=== PATIENT | female | born 1965 | race Caucasian/White ===

== ENCOUNTER 2021-12-08 16:06 | Inpatient (IN) ==
[2021-12-08 18:07] LABS: Basophils # (auto) 0.03 K/uL (0-0.2); Basophils % (auto) 0.1 %; Eosinophils # (auto) 0.02 K/uL (0-0.5); Eosinophils % (auto) 0.1 %; Hematocrit (blood only) 36.8 % (37-47); Hemoglobin 12.1 g/dL (12.0-16.0); Immature Granulocytes # (auto) 0.23 K/uL (0.00-0.02); Immature Granulocytes % (auto) 1.1 %; Lymphocytes # (auto) 1.45 K/uL (1.2-3.4); Lymphocytes % (auto) 6.6 %; Mean Corpuscular Hgb Conc 32.9 g/dL (32-36); Mean Corpuscular Volume 97.4 fL (80-100); Monocytes # (auto) 1.39 K/uL (0.11-0.59); Monocytes % (auto) 6.4 %; Neutrophils # (auto) 18.74 K/uL (1.4-6.5); Neutrophils % (auto) 85.7 %; Platelet Count 258 K/uL (130-400); RDW Coefficient of Variation 14.6 % (11.5-14.5); RDW Standard Deviation 51.4 fL (36.4-46.3); Red Blood Count 3.78 M/uL (4.2-5.4); White Blood Count 21.86 K/uL (4.8-10.8)
[2021-12-08 19:25] LABS: Albumin Globulin Ratio 0.9 (0.9-2); Albumin Level 3.7 gm/dl (3.4-5.0); Bilirubin,Total 0.7 mg/dl (0.2-1.0); Calcium 9.2 mg/dl (8.5-10.1); Est GFR (African American) 121.1 ml/min; Est GFR (Non-African American) 104.5 ml/min; Potassium 3.6 mmol/L (3.5-5.1); Total Protein 7.7 gm/dl (6.0-8.3)
[2021-12-08] MEDS ORDERED: SODIUM CHLORIDE 0.9% 1000ML 1,000 ML IV ONE (19:48)
[2021-12-08] MEDS ORDERED: CLINDAMYCIN 900 MG in DEXTROSE 5% 50 ML IV ONE (19:48)
--- NOTE | 2021-12-08 19:58 | Emergency Department Note ---
History of Present Illness General Chief complaint: Throat Pain Stated complaint: SWELLING IN THROAT, THROAT/JAW PAIN Time Seen by Provider: 12/08/21 19:40 Source: patient History of Present Illness Provider complaint: Neck pain Onset (ago): day(s) 3 Location: neck Pain Consistency: + constant Maximum Pain Intensity: 10 Quality: + other (Soreness) Exacerbated By: + eating Associated symptoms: + cough, + nausea/vomiting and + shortness of breath; no chest pain or no fever/chills This is a 56-year-old female who presents with neck pain for the past 3 days. She developed a sore throat about a week ago with cough and cold symptoms. She was seen here 3 days ago and had a work-up including testing for COVID, strep and a chest x-ray. She was discharged home on doxycycline. She states that when she got home she developed a significant amount of swelling to her anterior neck. She has pain to that area which she describes as soreness. It is worse when she tries to swallow. She states that she has significant difficulty drinking liquids and has thrown them up. She has some difficulty breathing as well. She denies any rash. She has had no fever, loss of taste or smell, chest pain, abdominal pain, diarrhea or urinary symptoms. She denies any recent dental work or dental pain other than the neck pain radiating into her lower jaw. Home Medications Medication Instructions Recorded Confirmed Type famotidine 40 mg tablet 40 mg PO BID 09/07/20 12/08/21 History ibuprofen 600 mg tablet 600 mg PO DIRECTED PRN 09/07/20 12/08/21 History umeclidinium 62.5 mcg-vilanterol 1 inh INHALATION DAILY PRN 09/07/20 12/08/21 History 25 mcg/actuation powdr for inhalation (Anoro Ellipta) albuterol sulfate 90 mcg/actuation 2 inh INHALATION Q6H PRN #8.5 g 12/05/21 12/08/21 Rx aerosol inhaler doxycycline hyclate 100 mg capsule 100 mg PO BID 7 Days #14 cap 12/05/21 12/08/21 Rx prednisone 20 mg tablet 60 mg PO DAILY 4 Days #12 tab 12/05/21 12/08/21 Rx acetaminophen 500 mg tablet 1,000 mg PO Q6H PRN 12/08/21 12/08/21 History (Tylenol Extra Strength) multivitamin 1 tab PO DAILY 12/08/21 12/08/21 History sulindac 150 mg tablet 150 mg PO BID 12/08/21 12/08/21 History Allergies Allergy/AdvReac Type Severity Reaction Status Date / Time Penicillins Allergy Intermediate RASH Verified 12/08/21 21:49 Past Med/Surg History Medical History Carpal tunnel syndrome bilat Chronic obstructive pulmonary disease rare res inh use DVT (deep venous thrombosis) 10 yrs ago from prolonged standing > right leg > thinners > no longer on GERD (gastroesophageal reflux disease) Hypertension pt denies > no meds Osteoarthritis Sleep apnea cpap Surgical History History of adenoidectomy History of ankle surgery left History of repair of rotator cuff left x2 History of tonsillectomy History of tooth extraction wisdom teeth Family History Mother Diabetes Social History Smoking Status: Former smoker Second Hand Exposure: No; Hx Alcohol Use: No Hx Substance Use: No Preferred Language: Nauruan Communication Ability: Effective 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 and A total of 10 systems reviewed and were otherwise negative Physical Exam Vital Signs Vital Signs - 24 hr 12/08/21 16:32 12/08/21 21:02 Temperature 36.4 C L Temperature Source Skin Pulse Rate 98 H Respiratory Rate 18 20 Respiratory Effort / Characteristics Non-Labored Grunting Labored Respiratory Depth Normal Normal Blood Pressure 148/84 H Blood Pressure [Right Arm] 119/96 Blood Pressure Mean 105 Blood Pressure Mean [Right Arm] 103 Pulse Oximetry 96 95 Oxygen Delivery Method Room Air Room Air Sepsis Recent Fever Within 48 Hours No Sepsis New/Unexplained Change in Mental Status No Sepsis Action Taken by Nursing No Action Required Constitutional: Vital signs reviewed. Eyes: Pupils are equal round reactive to light. Conjunctiva are noninjected. ENT: Pharynx is clear without erythema or exudate. Mucous membranes are dry. Neck supple without meningeal signs. Soft tissue swelling to the neck b ilaterally with mild induration. No firmness or significant swelling to the submental region or any elevation of the tongue. No usual edema or shift. No trismus or drooling. Respiratory: Clear to auscultation bilaterally. Breath sounds are equal bilaterally. No stridor or wheezing. Cardiovascular: Regular rate and rhythm. No rubs or gallops. GI: Soft, nondistended and nontender. Bowel sounds are present. Musculoskeletal: No peripheral edema. Integumentary: No cyanosis. or jaundice. Neurological: The patient is awake and alert. No focal deficits. Psychiatric: Normal affect. Not anxious appearing. Course Administered Medications Discontinued Medications Dexamethasone (Dexamethasone Sod Inj 4 Mg/Ml Vial) 10 mg IV NOW STA Stop: 12/08/21 21:28 Last Admin: 12/08/21 21:42 Dose: 10 mg Documented by: [id number] Sodium Chloride (Nss 1000ml) 1,000 mls @ 999 mls/hr IV .Q1H1M ONE Stop: 12/08/21 20:48 Last Admin: 12/08/21 20:43 Dose: 999 mls/hr Documented by: [id number] Clindamycin Phosphate 900 mg/ (Dextrose) 56 mls @ 112 mls/hr IV ONE ONE Stop: 12/08/21 20:17 Last Infusion: 12/08/21 21:52 Dose: 0 mls/hr Documented by: [id number] Admin: 12/08/21 20:48 Dose: 112 mls/hr Documented by: [id number] Ioversol (Optiray 320 100ml) 91 ml IV ONCE ONE Stop: 12/08/21 20:29 Last Admin: 12/08/21 20:31 Dose: 91 ml Documented by: [id number] Medical Decision Making Differential Diagnosis Cellulitis, abscess, retropharyngeal abscess, Jamison's angina, mononucleosis Medical Records Attestation: I reviewed the patient's medical records. I did perform a limited focused review of portions of the patient's old chart on the electronic medical record. The patient was seen 3 days ago for similar symptoms without the swelling. She had negative testing for strep and a bio fire for viral and COVID testing. Chest x-ray was unremarkable and she was sent home on doxycycline. Home Medications Current Medication List: was personally reviewed by me Laboratory Data Attestation: I reviewed the patient's lab results. Result diagrams: 12/08/21 17:35 12/08/21 17:35 Lab Results 12/08/21 12/08/21 12/08/21 Range/Units 17:35 17:35 20:17 WBC 21.86 H (4.8-10.8) K/uL RBC 3.78 L (4.2-5.4) M/uL Hgb 12.1 (12.0-16.0) g/dL Hct 36.8 L (37-47) % MCV 97.4 (80-100) fL MCH 32.0 (25-34) pg MCHC 32.9 (32-36) g/dL RDW Std Deviation 51.4 H (36.4-46.3) fL RDW Coeff of Jamison 14.6 H (11.5-14.5) % Plt Count 258 (130-400) K/uL MPV 9.0 (7.4-10.4) fL Immature Gran % (Auto) 1.1 % Neut % (Auto) 85.7 % Lymph % (Auto) 6.6 % Bibb % (Auto) 6.4 % Eos % (Auto) 0.1 % Baso % (Auto) 0.1 % Neut # (Auto) 18.74 H (1.4-6.5) K/uL Lymph # (Auto) 1.45 (1.2-3.4) K/uL Bibb # (Auto) 1.39 H (0.11-0.59) K/uL Eos # (Auto) 0.02 (0-0.5) K/uL Baso # (Auto) 0.03 (0-0.2) K/uL Immature Gran # (Auto) 0.23 H (0.00-0.02) K/uL Sodium 138 (136-145) mmol/L Potassium 3.6 (3.5-5.1) mmol/L Chloride 98 (98-107) mmol/L Carbon Dioxide 31 (21-32) mmol/L Anion Gap 9 (3-11) BUN 11 (6-23) mg/dl Creatinine 0.58 L (0.6-1.2) mg/dl Est Cr Clr Drug Dosing 144.0 ml/min Est GFR ( Amer) 121.1 ml/min Est GFR (Non-Af Amer) 104.5 ml/min BUN/Creatinine Ratio 19.0 (10-20) Glucose 129 H (70-99(Fasting)) mg/dl Calcium 9.2 (8.5-10.1) mg/dl Total Bilirubin 0.7 (0.2-1.0) mg/dl AST 28 (13-39) U/L ALT 17 (7-52) U/L Alkaline Phosphatase 78 (34-104) U/L C-Reactive Protein 28.38 H (0-0.5) mg/dl Total Protein 7.7 (6.0-8.3) gm/dl Albumin 3.7 (3.4-5.0) gm/dl Globulin 4.0 (2.5-4.0) gm/dl Albumin/Globulin Ratio 0.9 (0.9-2) Monoscreen (Negative) 12/08/21 Range/Units 20:17 WBC (4.8-10.8) K/uL RBC (4.2-5.4) M/uL Hgb (12.0-16.0) g/dL Hct (37-47) % MCV (80-100) fL MCH (25-34) pg MCHC (32-36) g/dL RDW Std Deviation (36.4-46.3) fL RDW Coeff of Jamison (11.5-14.5) % Plt Count (130-400) K/uL MPV (7.4-10.4) fL Immature Gran % (Auto) % Neut % (Auto) % Lymph % (Auto) % Bibb % (Auto) % Eos % (Auto) % Baso % (Auto) % Neut # (Auto) (1.4-6.5) K/uL Lymph # (Auto) (1.2-3.4) K/uL Bibb # (Auto) (0.11-0.59) K/uL Eos # (Auto) (0-0.5) K/uL Baso # (Auto) (0-0.2) K/uL Immature Gran # (Auto) (0.00-0.02) K/uL Sodium (136-145) mmol/L Potassium (3.5-5.1) mmol/L Chloride (98-107) mmol/L Carbon Dioxide (21-32) mmol/L Anion Gap (3-11) BUN (6-23) mg/dl Creatinine (0.6-1.2) mg/dl Est Cr Clr Drug Dosing ml/min Est GFR ( Amer) ml/min Est GFR (Non-Af Amer) ml/min BUN/Creatinine Ratio (10-20) Glucose (70-99(Fasting)) mg/dl Calcium (8.5-10.1) mg/dl Total Bilirubin (0.2-1.0) mg/dl AST (13-39) U/L ALT (7-52) U/L Alkaline Phosphatase (34-104) U/L C-Reactive Protein (0-0.5) mg/dl Total Protein (6.0-8.3) gm/dl Albumin (3.4-5.0) gm/dl Globulin (2.5-4.0) gm/dl Albumin/Globulin Ratio (0.9-2) Monoscreen Negative (Negative) Imaging Data Radiologist's Impression: Soft Tissue Neck CT 12/08/21 19:48 CT SCAN OF THE NECK WITH IV CONTRAST CLINICAL HISTORY: Neck swelling. COMPARISON STUDY: No priors. TECHNIQUE: Following the IV administration of 91 cc of Optiray 320, CT scan of the soft tissues of the neck was performed from the skull base to the upper chest. Images are reviewed in the axial, sagittal, and coronal planes. IV contrast was administered without complication. A dose lowering technique was utilized adhering to the principles of ALARA. CT DOSE: 609.23 mGy.cm FINDINGS: Pharynx: The epiglottis appears thickened and edematous. There is marked mucosal thickening and edema with mucosal hyperemia seen throughout the pharyngeal and laryngeal soft tissues. No peritonsillar abscess is identified. There is extensive infiltration seen throughout the parapharyngeal fat bilaterally, as well as infiltration of the retropharyngeal fat. Extensive infiltration is within the deep soft tissues in the anterior neck extending from the level of the hyoid to the thoracic inlet. There is a crescentic fluid collection seen anteriorly to the thyroid cartilage. This extends from the hyoid to the level of the thyroid gland on axial image #182. The collection extends approximately 4 cm in length and measures approximately 1 cm maximum thickness. There is infiltration of the subcutaneous fat within the anterior neck and the left sternoclavicular region. There is also narrowing of the laryngeal airway. The sublingual fat is normal. Lymphadenopathy: There are numerous mildly enlarged bilateral cervical chain lymph nodes which measure up to 1.6 cm in length. Thyroid: Mildly enlarged and heterogeneous. Salivary glands: The parotid glands are within normal limits. The submandibular glands appear mildly enlarged and heterogeneous with surrounding infiltration. Brain parenchyma: The visualized brain parenchyma at the skull base is normal in appearance. Vascular structures: The carotid arteries and jugular veins are patent bilaterally. Skeletal structures: Imaged portions of the calvarium at the skull base are within normal limits. The cervical spine appears intact noting multilevel spondylosis. No lytic or blastic lesion is seen. Sinuses and mastoids: The visualized paranasal sinuses are clear. The mastoid air cells are well pneumatized. Lung apices: Visualized apical lung parenchyma is clear. IMPRESSION: 1. There is a severe inflammatory process of the pharynx and larynx as above with overlying cellulitis of the anterior neck. This is centered at the level of the larynx and causes at least mild narrowing of the laryngeal airway. This is likely on an infectious basis. 2. No peritonsillar abscess is identified. 3. There is a crescentic fluid collection seen within the deep soft tissues of the anterior neck extending from the level of the hyoid to the thyroid gland. This is superficial to the thyroid cartilage and likely represents an abscess. 4. The epiglottis is markedly thickened and edematous indicating epiglottitis. 5. There is infiltration of the parapharyngeal fat and retropharyngeal fat. 6. Edema within the submandibular glands and the thyroid gland is likely reactive. 7. Numerous mildly enlarged cervical lymph nodes are likely reactive. 8. Additional findings as above. Findings were discussed with Dr. Ramos in the emergency department at the time of interpretation. ACT 112: Negative or not required by law. Electronically signed by: Migue Siddiqui M.D. 12/08/2021 8:52 PM [facility] Narrative I did evaluate the patient as noted above. The patient has been sick for about a week with sore throat and cough. She is presenting today with swelling to her neck for 3 days. IV access was established. She was started on normal saline IV. I did order 2 sets of blood cultures and treated her with clindamycin 900 mg IV. I did order and review the patient's blood work as noted in the electronic medical record. Her white count is elevated at 21,000. Hemoglobin is 12. CMP is unremarkable. After discussion with the patient, I did order a CT of the soft tissue neck. I did review the images myself as well as the radiology report as described above. She has significant findings as noted above. I did speak to the APC for Dr. Zepeda of ENT. She reviewed the case with the physician and called back to state that she wanted the patient in the ICU. She will see her in the morning. She recommended continuing the clindamycin as well as Decadron 10 mg every 6. I did reassess the patient. She is resting comfortably. She is not stridulous. She has no difficulty breathing. She is not tachypneic or hypoxemic. I did discuss case with Gustavo from the ICU team as well as Dr. Galeana of the hospitalist service. I did treat the patient with Decadron 10 mg IV. Impression & Plan Acute epiglottitis, Cellulitis of neck, Abscess of neck Discharge Plan Visit Data Chief Complaint: Throat Pain Stated Complaint: SWELLING IN THROAT, THROAT/JAW PAIN ED Provider: Jet Ramos Discharge Problem: Acute epiglottitis, Cellulitis of neck, Abscess of neck Patient Disposition: Admitted As Inpatient Forms Stand Alone Forms: My [facility] Prescriptions Prescriptions: No Action famotidine 40 mg Tablet 40 mg PO BID RF: 0 Anoro Ellipta 62.5-25 mcg/actuation Blister With Device 1 inh INHALATION DAILY PRN (Reason: Shortness Of Breath) RF: 0 ibuprofen 600 mg Tablet 600 mg PO DIRECTED PRN (Reason: Pain) RF: 0 multivitamin Tablet 1 tab PO DAILY RF: 0 sulindac 150 mg tablet 150 mg PO BID RF: 0 acetaminophen [Tylenol Extra Strength] 500 mg Tablet 1,000 mg PO Q6H PRN (Reason: Pain) RF: 0 doxycycline hyclate 100 mg capsule 100 mg PO BID 7 Days Qty: 14 RF: 0 albuterol sulfate 90 mcg/actuation HFA aerosol inhaler 2 inh inhalation Q6H PRN (Reason: shortness of breath or wheezing) Qty: 8.5 RF: 0 prednisone 20 mg tablet 60 mg PO DAILY 4 Days Qty: 12 RF: 0 Referrals Referrals: Jim Martell MD [Primary Care Provider] - Discharge Problem: Acute epiglottitis Qualifiers: Airway obstruction: without obstruction Qualified Code(s): J05.10 - Acute epiglottitis without obstruction
[2021-12-08] MEDS ORDERED: OPTIRAY 320 100ml IV ONE (20:28)
--- NOTE | 2021-12-08 20:54 | CT Scan Report ---
CT SCAN OF THE NECK WITH IV CONTRAST CLINICAL HISTORY: Neck swelling. COMPARISON STUDY: No priors. TECHNIQUE: Following the IV administration of 91 cc of Optiray 320, CT scan of the soft tissues of e neck was performed from the skull base to the upper chest. Images are reviewed in the axial, sagitt al, and coronal planes. IV contrast was administered without complication. A dose lowering techniqu e was utilized adhering to the principles of ALARA. CT DOSE: 609.23 mGy.cm FINDINGS: Pharynx: The epiglottis appears thickened and edematous. There is marked mucosal thickening and edema with mucosal hyperemia seen throughout the pharyngeal and laryngeal soft tissues. No peritonsillar a bscess is identified. There is extensive infiltration seen throughout the parapharyngeal fat bilatera lly, as well as infiltration of the retropharyngeal fat. Extensive infiltration is within the deep so ft tissues in the anterior neck extending from the level of the hyoid to the thoracic inlet. There is a crescentic fluid collection seen anteriorly to the thyroid cartilage. This extends from the hyoid to the level of the thyroid gland on axial image #182. The collection extends approximately 4 cm in l ength and measures approximately 1 cm maximum thickness. There is infiltration of the subcutaneous fa t within the anterior neck and the left sternoclavicular region. There is also narrowing of the laryn geal airway. The sublingual fat is normal. Lymphadenopathy: There are numerous mildly enlarged bilateral cervical chain lymph nodes which measur e up to 1.6 cm in length. Thyroid: Mildly enlarged and heterogeneous. Salivary glands: The parotid glands are within normal limits. The submandibular glands appear mildly enlarged and heterogeneous with surrounding infiltration. Brain parenchyma: The visualized brain parenchyma at the skull base is normal in appearance. Vascular structures: The carotid arteries and jugular veins are patent bilaterally. Skeletal structures: Imaged portions of the calvarium at the skull base are within normal limits. The cervical spine appears intact noting multilevel spondylosis. No lytic or blastic lesion is seen. Sinuses and mastoids: The visualized paranasal sinuses are clear. The mastoid air cells are well pneu matized. Lung apices: Visualized apical lung parenchyma is clear. IMPRESSION: 1. There is a severe inflammatory process of the pharynx and larynx as above with overlying celluliti s of the anterior neck. This is centered at the level of the larynx and causes at least mild narrowin g of the laryngeal airway. This is likely on an infectious basis. 2. No peritonsillar abscess is identified. 3. There is a crescentic fluid collection seen within the deep soft tissues of the anterior neck exte nding from the level of the hyoid to the thyroid gland. This is superficial to the thyroid cartilage and likely represents an abscess. 4. The epiglottis is markedly thickened and edematous indicating epiglottitis. 5. There is infiltration of the parapharyngeal fat and retropharyngeal fat. 6. Edema within the submandibular glands and the thyroid gland is likely reactive. 7. Numerous mildly enlarged cervical lymph nodes are likely reactive. 8. Additional findings as above. Findings were discussed with Dr. Ramos in the emergency department at the time of interpretation. ACT 112: Negative or not required by law. Electronically signed by: Migue Siddiqui M.D. 12/08/2021 8:52 PM
[2021-12-08] MEDS ORDERED: DEXAMETHASONE SOD INJ 4 MG/ML VIAL IV STA (21:27)
--- NOTE | 2021-12-08 22:32 | History & Physical Report ---
Date of Service December 08, 2021 Assessment & Plan (1) Sepsis: Plan: Secondary to neck space infection secondary to epiglottitis hx PE DVT status post Coumadin status post IVC filter placement COPD, clinical wheezing on exam GERD, stable on regimen learning disability as per records Steroid-induced hyperglycemia rule out DM past tobacco abuse ICU monitoring due to potential for upper airway obstruction as per ENT recommendation ER provider already in touch with Dr. Barone (ENT specialist siphon operator) who recommends antibiotic and Decadron 10 mg IV every 6 hours for now N.p.o. until patient seen by ENT in a.m. in anticipation of procedure. CS, Vancomycin and ceftriaxone as recommended antibiotics supraglottitis. Check hemoglobin A1c DVT prophylaxis per Lovenox subcu Full code Text document was generated using [employer] voice recognition software. It may contain grammatical or spelling errors. Kindly contact undersigned for clarification of any documentation item in question. History of Present Illness Chief Complaint: Worsening neck swelling Primary Care Provider: Jim Martell MD History obtained from patient and records. Medical history significant for PE DVT status post Coumadin status post IVC filter placement, COPD, GERD, learning disability as per records, past tobacco abuse. Last confinement 2015 under Orthopedics service for elective left shoulder surgery. 1 week history of fever, cough, sore throat symptoms. Poor appetite. No known recent COVID-19 contacts. Patient has not received COVID-19 vaccination. Patient seen at PCP's office. Symptoms attributed to viral infection. Outpatient COVID-19 test was negative. Patient consulted ER 3 days ago for worsening symptoms. Patient discharged on doxycycline and steroid course for possible bronchitis. Worsening symptoms and note of neck swelling " starting from the right ear and going across." Pain all over her teeth. Voice change noted. Some swallowing problems. Cough productive of clear sputum without chest pain. Patient consulted ER for worsening symptoms. IV Clindamycin and Decadron given at the ER. Medical History as above Surgical History : Ovarian cyst removal, IVC filter placement, tonsillectomy/adenoidectomy Family History : Heart disease, DM, colon cancer Personal/Social history : Past tobacco abuse, no EtOH intake, disabled Allergies Allergy/AdvReac Type Severity Reaction Status Date / Time Penicillins Allergy Intermediate RASH Verified 12/08/21 21:49 Home Medications Medication Instructions Recorded Confirmed Type famotidine 40 mg tablet 40 mg PO BID 09/07/20 12/08/21 History ibuprofen 600 mg tablet 600 mg PO DIRECTED PRN 09/07/20 12/08/21 History umeclidinium 62.5 mcg-vilanterol 1 inh INHALATION DAILY PRN 09/07/20 12/08/21 History 25 mcg/actuation powdr for inhalation (Anoro Ellipta) albuterol sulfate 90 mcg/actuation 2 inh INHALATION Q6H PRN #8.5 g 12/05/21 12/08/21 Rx aerosol inhaler doxycycline hyclate 100 mg capsule 100 mg PO BID 7 Days #14 cap 12/05/21 12/08/21 Rx prednisone 20 mg tablet 60 mg PO DAILY 4 Days #12 tab 12/05/21 12/08/21 Rx acetaminophen 500 mg tablet 1,000 mg PO Q6H PRN 12/08/21 12/08/21 History (Tylenol Extra Strength) multivitamin 1 tab PO DAILY 12/08/21 12/08/21 History sulindac 150 mg tablet 150 mg PO BID 12/08/21 12/08/21 History Past Med/Surg History Medical History Carpal tunnel syndrome bilat Chronic obstructive pulmonary disease rare res inh use DVT (deep venous thrombosis) 10 yrs ago from prolonged standing > right leg > thinners > no longer on GERD (gastroesophageal reflux disease) Hypertension pt denies > no meds Osteoarthritis Sleep apnea cpap Surgical History History of adenoidectomy History of ankle surgery left History of repair of rotator cuff left x2 History of tonsillectomy History of tooth extraction wisdom teeth Family History Mother Diabetes Social History Smoking Status: Former smoker Second Hand Exposure: No; Do You Dip or Chew Tobacco: No; Tobacco Cessation Education Requested by Patient: No Hx Alcohol Use: No Hx Substance Use: No Preferred Language: Urdu Communication Ability: Effective Communication Ability Comment: Pt states she is unable to read and unable to spell good Baggage Security Checker Required: No Beliefs That Will Affect Care: None Current Living Situation: Family Current Living Situation Comment: Home with sister, states they help each other Other Information That Helps Us Care for You: No Feels Safe at Home: Yes Safety Concerns: Feels Safe At This Time Assistive Devices: None Review of Systems Review of Systems: As per HPI, all other systems reviewed and negative Physical Exam Physical Exam: GENERAL: Comfortable, anxious, morbidly obese, dysphonic, no stridor, no respiratory distress SKIN: Normal color, warm HEENT: [place] palpebral conjunctivae, no ptosis, dry buccal mucosa, no trismus NECK : Short neck, cervical swelling and tenderness CHEST : Expiratory wheezes , no tenderness HEART : RRR, no obvious murmurs ABDOMEN: Some distention, nontender EXTREMITIES : No LE swelling/tenderness, no other conspicuous deformities noted NEUROLOGIC : Coherent, no facial asymmetry, dysphonic, no other gross focality Results & Data Results & Data ([facility]) Vital Signs (Past 12 Hours) Vital Signs Temp Pulse Resp BP BP Pulse Ox 12/08/21 21:02 20 119/96 95 12/08/21 16:32 36.4 C L 98 H 18 148/84 H 96 Laboratory Results Laboratory Results WBC 21.86 K/uL (4.8-10.8) H 12/08/21 17:35 RBC 3.78 M/uL (4.2-5.4) L 12/08/21 17:35 Hgb 12.1 g/dL (12.0-16.0) 12/08/21 17:35 Hct 36.8 % (37-47) L 12/08/21 17:35 MCV 97.4 fL (80-100) 12/08/21 17:35 MCH 32.0 pg (25-34) 12/08/21 17:35 MCHC 32.9 g/dL (32-36) 12/08/21 17:35 RDW Std Deviation 51.4 fL (36.4-46.3) H 12/08/21 17:35 RDW Coeff of [place]ison 14.6 % (11.5-14.5) H 12/08/21 17:35 Plt Count 258 K/uL (130-400) 12/08/21 17:35 MPV 9.0 fL (7.4-10.4) 12/08/21 17:35 Immature Gran % (Auto) 1.1 % 12/08/21 17:35 Neut % (Auto) 85.7 % 12/08/21 17:35 Lymph % (Auto) 6.6 % 12/08/21 17:35 Henry % (Auto) 6.4 % 12/08/21 17:35 Eos % (Auto) 0.1 % 12/08/21 17:35 Baso % (Auto) 0.1 % 12/08/21 17:35 Neut # (Auto) 18.74 K/uL (1.4-6.5) H 12/08/21 17:35 Lymph # (Auto) 1.45 K/uL (1.2-3.4) 12/08/21 17:35 Henry # (Auto) 1.39 K/uL (0.11-0.59) H 12/08/21 17:35 Eos # (Auto) 0.02 K/uL (0-0.5) 12/08/21 17:35 Baso # (Auto) 0.03 K/uL (0-0.2) 12/08/21 17:35 Immature Gran # (Auto) 0.23 K/uL (0.00-0.02) H 12/08/21 17:35 Sodium 138 mmol/L (136-145) 12/08/21 17:35 Potassium 3.6 mmol/L (3.5-5.1) 12/08/21 17:35 Chloride 98 mmol/L (98-107) 12/08/21 17:35 Carbon Dioxide 31 mmol/L (21-32) 12/08/21 17:35 Anion Gap 9 (3-11) 12/08/21 17:35 BUN 11 mg/dl (6-23) 12/08/21 17:35 Creatinine 0.58 mg/dl (0.6-1.2) L 12/08/21 17:35 Est Cr Clr Drug Dosing 144.0 ml/min 12/08/21 17:35 Est GFR ( Amer) 121.1 ml/min 12/08/21 17:35 Est GFR (Non-Af Amer) 104.5 ml/min 12/08/21 17:35 BUN/Creatinine Ratio 19.0 (10-20) 12/08/21 17:35 Glucose 129 mg/dl (70-99(Fasting)) H 12/08/21 17:35 Lactate 0.7 mmol/L (0.4-2.0) 12/08/21 22:00 Calcium 9.2 mg/dl (8.5-10.1) 12/08/21 17:35 Magnesium 1.8 mg/dl (1.7-2.4) 12/08/21 17:35 Total Bilirubin 0.7 mg/dl (0.2-1.0) 12/08/21 17:35 AST 28 U/L (13-39) 12/08/21 17:35 ALT 17 U/L (7-52) 12/08/21 17:35 Alkaline Phosphatase 78 U/L (34-104) 12/08/21 17:35 C-Reactive Protein 28.38 mg/dl (0-0.5) H 12/08/21 20:17 Total Protein 7.7 gm/dl (6.0-8.3) 12/08/21 17:35 Albumin 3.7 gm/dl (3.4-5.0) 12/08/21 17:35 Globulin 4.0 gm/dl (2.5-4.0) 12/08/21 17:35 Albumin/Globulin Ratio 0.9 (0.9-2) 12/08/21 17:35 Monoscreen Negative (Negative) 12/08/21 20:17 Impressions Soft Tissue Neck CT 12/08/21 19:48 CT SCAN OF THE NECK WITH IV CONTRAST CLINICAL HISTORY: Neck swelling. COMPARISON STUDY: No priors. TECHNIQUE: Following the IV administration of 91 cc of Optiray 320, CT scan of the soft tissues of the neck was performed from the skull base to the upper chest. Images are reviewed in the axial, sagittal, and coronal planes. IV contrast was administered without complication. A dose lowering technique was utilized adhering to the principles of ALARA. CT DOSE: 609.23 mGy.cm FINDINGS: Pharynx: The epiglottis appears thickened and edematous. There is marked mucosal thickening and edema with mucosal hyperemia seen throughout the pharyngeal and laryngeal soft tissues. No peritonsillar abscess is identified. There is extensive infiltration seen throughout the parapharyngeal fat bilaterally, as well as infiltration of the retropharyngeal fat. Extensive infiltration is within the deep soft tissues in the anterior neck extending from the level of the hyoid to the thoracic inlet. There is a crescentic fluid collection seen anteriorly to the thyroid cartilage. This extends from the hyoid to the level of the thyroid gland on axial image #182. The collection extends approximately 4 cm in length and measures approximately 1 cm maximum thickness. There is infiltration of the subcutaneous fat within the anterior neck and the left sternoclavicular region. There is also narrowing of the laryngeal airway. The sublingual fat is normal. Lymphadenopathy: There are numerous mildly enlarged bilateral cervical chain lymph nodes which measure up to 1.6 cm in length. Thyroid: Mildly enlarged and heterogeneous. Salivary glands: The parotid glands are within normal limits. The submandibular glands appear mildly enlarged and heterogeneous with surrounding infiltration. Brain parenchyma: The visualized brain parenchyma at the skull base is normal in appearance. Vascular structures: The carotid arteries and jugular veins are patent bilaterally. Skeletal structures: Imaged portions of the calvarium at the skull base are within normal limits. The cervical spine appears intact noting multilevel spondylosis. No lytic or blastic lesion is seen. Sinuses and mastoids: The visualized paranasal sinuses are clear. The mastoid air cells are well pneumatized. Lung apices: Visualized apical lung parenchyma is clear. IMPRESSION: 1. There is a severe inflammatory process of the pharynx and larynx as above with overlying cellulitis of the anterior neck. This is centered at the level of the larynx and causes at least mild narrowing of the laryngeal airway. This is likely on an infectious basis. 2. No peritonsillar abscess is identified. 3. There is a crescentic fluid collection seen within the deep soft tissues of the anterior neck extending from the level of the hyoid to the thyroid gland. This is superficial to the thyroid cartilage and likely represents an abscess. 4. The epiglottis is markedly thickened and edematous indicating epiglottitis. 5. There is infiltration of the parapharyngeal fat and retropharyngeal fat. 6. Edema within the submandibular glands and the thyroid gland is likely reactive. 7. Numerous mildly enlarged cervical lymph nodes are likely reactive. 8. Additional findings as above. Findings were discussed with Dr. Ramos in the emergency department at the time of interpretation. ACT 112: Negative or not required by law. Electronically signed by: Migue Siddiqui M.D. 12/08/2021 8:52 PM Diagnostic Findings Chest x-ray as per my interpretation no congestion
[2021-12-08 22:41] LABS: Adenovirus PCR Not Detected (NotDetected); Bordetella parapertussis PCR Not Detected (NotDetected); Bordetella pertussis PCR Not Detected (NotDetected); Chlamydia pneumoniae PCR Not Detected (NotDetected); Coronavirus 229E PCR Not Detected (NotDetected); Coronavirus CoV-2 (COVID19)PCR Not Detected (NotDetected); Coronavirus HKU1 PCR Not Detected (NotDetected); Coronavirus NL63 PCR Not Detected (NotDetected); Coronavirus OC43PCR Not Detected (NotDetected); Human Metapneumovirus PCR Not Detected (NotDetected); Influenza A PCR Not Detected (NotDetected); Influenza B PCR Not Detected (NotDetected); Mycoplasma pneumoniae PCR Not Detected (NotDetected); Parainfluenza Virus 1 PCR Not Detected (NotDetected); Parainfluenza Virus 2 PCR Not Detected (NotDetected); Parainfluenza Virus 3 PCR Not Detected (NotDetected); Parainfluenza Virus 4 PCR Not Detected (NotDetected); Respiratory Syncytial VirusPCR Not Detected (NotDetected); Rhinovirus/Enterovirus PCR Not Detected (NotDetected)
[2021-12-08] MEDS ORDERED: LEVALBUTEROL 1.25MG/0.5ML NEB INH STA (22:41)
[2021-12-08] MEDS ORDERED: IPRATROPIUM BROMIDE NEB SOLN 0.02% 2.5 ML VIAL INH STA (22:41)
[2021-12-08] MEDS ORDERED: XOPENEX/ATROVENT 1.25mg/0.5MG NEB COMBO NEB STA (22:41)
[2021-12-08] MEDS ORDERED: LACTATED RINGER'S 1,000 ML IV ONE (23:37)
[2021-12-09] MEDS ORDERED: IBUPROFEN 600 MG TAB PO PRN (00:46)
[2021-12-09] MEDS ORDERED: KETOROLAC TROMETHAMINE 15 MG/ML VIAL IV PRN (00:46)
[2021-12-09] MEDS ORDERED: ICU PROTOCOL FOR HYPERGLYCEMIA PRN (00:46)
[2021-12-09] MEDS ORDERED: PROMETHAZINE HCL 12.5 MG in SODIUM CHLORIDE 0.9% 50 ML IV PRN (00:46)
[2021-12-09] MEDS ORDERED: LORazepam 2 MG/1 ML VIAL IV PRN (00:46)
--- NOTE | 2021-12-09 01:29 | Critical Care Consultation ---
Date of Consultation December 09, 2021 Assessment & Plan (1) Admitted to intensive care unit: Reason Critically Ill: 56-year-old female presenting with cellulitis of the anterior neck with concerns for epiglottitis on CT as well. Continue to monitor in the ICU in the event of emergent airway necessary. NEURO - * CAM ICU: NEGATIVE CARDIAC/VASCULAR - * Hypertension: * Continue home medications as tolerated. * Monitor on telemetry. RESPIRATORY - * Difficult airway: * Secondary to cellulitis of the anterior neck and concerns for epiglottitis. * Difficult airway tools at bedside. * ENT to evaluated in the AM. GI/NUTRITION - * NPO after midnight. RENAL/LYTES - * No significant electrolyte derangements. - * No concerns at this time. ENDO - * No h/o DM or thyroid dz * BSGs per unit protocol. ISS --> gtt per unit policy. HEME - * Leukocytosis: * In the setting of cellulitis. ID - * Cellulitis of the Neck/Epiglottitis: * Continue w/ Clindamycin, Decadron, Toradol * ENT Eval for ?? surgical intervention. LINES/IV ACCESS - * PIVs x2 DVT PROPHYLAXIS - * Lovenox * SCDs I have personally spent 35 minutes of critical care time in the direct management of this patient. This is a life/limb threatening event. This includes time spent evaluating patient, direct bedside care, chart review, placing orders, interpretation of diagnostic studies, discussion with consultants, patient, and family members, as well as other required patient management activities. This time is exclusive of all separately billable procedures, and teaching time and separate from and in addition to any other critical care service time. Thank you for allowing us to participate in the care of this patient. Please refer to my attending physician's documentation for any further recommendations. (2) Cellulitis of neck: (3) Difficult airway: History of Present Illness Attending Physician: Elicia Miranda, History of Present Illness Patient is a 56-year-old female with a significant past medical history of COPD who had presented to the emergency department on 12/05 with a 3-day complaint of cough, congestion, sore throat. She was diagnosed with bronchitis and placed on doxycycline. Unfortunately, despite antibiotic management, the patient developed increasing pain and swelling to the anterior aspect of the neck as well as associated difficulty swallowing. This prompted return visit to the emergency department. On evaluation, the patient was noted to have a moderate leukocytosis and CT demonstrated cellulitis of the anterior neck with areas of abscess as well as concerning findings for epiglottitis. She received IV clindamycin and Decadron. ENT was consulted by phone and recommended the patient be admitted to the ICU for airway management in the event of patient declined. Upon evaluation in the emergency department, the patient is awake, alert, and oriented. She reports that she does feel better than when she had presented. She is laying flat on her back and not struggling to breathe. She complains of some ongoing cough, but otherwise reports improvement with swallowing and breathing. Allergies Allergy/AdvReac Type Severity Reaction Status Date / Time Penicillins Allergy Intermediate RASH Verified 12/08/21 21:49 Home Medications Medication Instructions Recorded Confirmed Type famotidine 40 mg tablet 40 mg PO BID 09/07/20 12/08/21 History ibuprofen 600 mg tablet 600 mg PO DIRECTED PRN 09/07/20 12/08/21 History umeclidinium 62.5 mcg-vilanterol 1 inh INHALATION DAILY PRN 09/07/20 12/08/21 History 25 mcg/actuation powdr for inhalation (Anoro Ellipta) albuterol sulfate 90 mcg/actuation 2 inh INHALATION Q6H PRN #8.5 g 12/05/21 12/08/21 Rx aerosol inhaler doxycycline hyclate 100 mg capsule 100 mg PO BID 7 Days #14 cap 12/05/21 12/08/21 Rx prednisone 20 mg tablet 60 mg PO DAILY 4 Days #12 tab 12/05/21 12/08/21 Rx acetaminophen 500 mg tablet 1,000 mg PO Q6H PRN 12/08/21 12/08/21 History (Tylenol Extra Strength) multivitamin 1 tab PO DAILY 12/08/21 12/08/21 History sulindac 150 mg tablet 150 mg PO BID 12/08/21 12/08/21 History Patient History Medical History Carpal tunnel syndrome bilat Chronic obstructive pulmonary disease rare res inh use DVT (deep venous thrombosis) 10 yrs ago from prolonged standing > right leg > thinners > no longer on GERD (gastroesophageal reflux disease) Hypertension pt denies > no meds Osteoarthritis Sleep apnea cpap Surgical History History of adenoidectomy History of ankle surgery left History of repair of rotator cuff left x2 History of tonsillectomy History of tooth extraction wisdom teeth Family History Mother Diabetes Social History Smoking Status: Former smoker Second Hand Exposure: No; Hx Alcohol Use: No Hx Substance Use: No Preferred Language: French Communication Ability: Effective Outside Sales Inspector Required: No Beliefs That Will Affect Care: None Current Living Situation: Significant Other Feels Safe at Home: Yes Assistive Devices: Glasses Review of Systems Review of Systems: All systems reviewed & are unremarkable except as noted in HPI & below Physical Exam Physical Exam: VITAL SIGNS - Vital signs and nursing notes were reviewed. GENERAL - Well nourished, well developed 56-year-old female in no acute distress. Pt communicates well with provider and answers questions appropriately. SKIN - Without rash. HEAD - NC/AT with no obvious deformities. EYES - PERRL with EOMI bilaterally. Sclera without injection. Palpebral conjunctiva pink and moist. EARS - No deformities of external structures noted on gross examination bilaterally. No pain elicited with palpation of the tragus bilaterally. NOSE - Midline and without cyanosis. No purulent drainage noted. Nasal mucosa without mucus discharge. MOUTH/OROPHARYNX - Without perioral cyanosis. Buccal mucosa pink and moist and without leukoplakia. Tongue midline with equal elevation of palate bilaterally. No tonsillar hypertrophy, erythema, or exudates noted. Good dentition noted. No trismus. No stridor or wheezing. NECK - Moderate edema and subglottic TTP on exam. Neck with FROM. Supple to palpation. No nuchal rigidity. LUNGS - Chest wall symmetric without accessory muscle use, intercostals retractions, or central cyanosis. Normal vesicular breath sounds CTA B/L. No wheezes, rales, or rhonchi appreciated. CARDIAC - RRR with S1/S2. No murmur, rubs, or gallops appreciated. ABDOMEN - Abdominal contour obese without pulsations or visible masses. BS normoactive all four quadrants. No tenderness, palpable masses, hepatosplenomegaly, or ascites noted. Results & Data Results & Data ([facility]) Vital Signs (Past 12 Hours) Vital Signs Temp Pulse Pulse Resp BP BP Pulse Ox 12/09/21 00:45 21 95 12/08/21 22:58 75 18 96 12/08/21 22:52 22 94 12/08/21 21:02 20 119/96 95 12/08/21 16:32 36.4 C L 98 H 18 148/84 H 96 Coding Level of Care Code Critical Care 1st 30-74 mins Diagnoses Admitted to intensive care unit Z78.9 Cellulitis of neck L03.221 Difficult airway T88.4XXA Time Spent (min) 35
[2021-12-09] MEDS ORDERED: CLINDAMYCIN 900 MG in DEXTROSE 5% 50 ML IV SCH (04:00)
[2021-12-09] MEDS ORDERED: VANCOMYCIN CONSULT ACTIVE PRN (04:33)
[2021-12-09] MEDS ORDERED: VANCOMYCIN HCL 1,000 MG in SODIUM CHLORIDE 0.9% 250 ML IV STA (04:33)
[2021-12-09] MEDS: cefTRIAXone SODIUM 2,000 MG in DEXTROSE 5% 50 ML IV SCH (05:04)
[2021-12-09 05:22] LABS: Basophils # (auto) 0.01 K/uL (0-0.2); Basophils % (auto) 0.1 %; Hematocrit (blood only) 35.3 % (37-47); Hemoglobin 11.7 g/dL (12.0-16.0); Immature Granulocytes # (auto) 0.22 K/uL (0.00-0.02); Immature Granulocytes % (auto) 1.3 %; Lymphocytes # (auto) 1.43 K/uL (1.2-3.4); Lymphocytes % (auto) 8.4 %; Mean Corpuscular Hemoglobin 32.4 pg (25-34); Mean Corpuscular Hgb Conc 33.1 g/dL (32-36); Mean Corpuscular Volume 97.8 fL (80-100); Mean Platelet Volume 8.9 fL (7.4-10.4); Monocytes # (auto) 0.63 K/uL (0.11-0.59); Monocytes % (auto) 3.7 %; Neutrophils # (auto) 14.73 K/uL (1.4-6.5); Neutrophils % (auto) 86.5 %; Platelet Count 257 K/uL (130-400); RDW Coefficient of Variation 14.7 % (11.5-14.5); RDW Standard Deviation 52.4 fL (36.4-46.3); Red Blood Count 3.61 M/uL (4.2-5.4); White Blood Count 17.02 K/uL (4.8-10.8)
[2021-12-09] MEDS: dexAMETHasone 10 MG in SYRINGE 0 ML IV SCH ×4 (05:22→23:58)
[2021-12-09] MEDS ORDERED: VANCOMYCIN HCL 2,500 MG in SODIUM CHLORIDE 0.9% 500 ML IV ONE (05:30)
[2021-12-09 05:47] LABS: BUN Creatinine Ratio 19.1 (10-20); Calcium 8.9 mg/dl (8.5-10.1); Creatinine Clr Calc Pharmacy 177.4 ml/min; Est GFR (African American) 129.8 ml/min; Potassium 3.6 mmol/L (3.5-5.1)
[2021-12-09] MEDS ORDERED: dexAMETHasone 6 MG in SYRINGE 0 ML IV SCH (06:00)
[2021-12-09] MEDS ORDERED: DEXAMETHASONE SOD INJ 4 MG/ML VIAL IV SCH (06:00)
--- NOTE | 2021-12-09 07:22 | XRay Report ---
XR chest 1V portable HISTORY: 56 years-old Female wheeze acute shortness of breath with wheezing COMPARISON: Chest radiographs 12/05/2021 TECHNIQUE: Portable AP view of the chest FINDINGS: The cardiac silhouette is upper limits of normal in size. There is no pneumothorax, pleural effusion, airspace consolidation or overt pulmonary edema. Degenerative changes of the shoulders and spine. IMPRESSION: No acute process. ACT 112: Negative or not required by law. The above report was generated using voice recognition software. It may contain grammatical, syntax o r spelling errors. Electronically signed by: Mahesh Stone M.D. 12/09/2021 7:21 AM
[2021-12-09 07:42] LABS: Estimated Average Glucose 114 mg/dl; Hemoglobin A1C 5.6 % (4.5-5.6)
[2021-12-09] MEDS ORDERED: CONSULT PHARMACY PRN (09:00)
--- NOTE | 2021-12-09 09:44 | Critical Care Progress Note ---
Date of Service December 09, 2021 Assessment & Plan (1) Admitted to intensive care unit: Plan: Reason Critically Ill: 56-year-old female presenting with cellulitis of the anterior neck with concerns for epiglottitis on CT as well. Continue to monitor in the ICU in the event of emergent airway necessary. NEURO - * CAM ICU: NEGATIVE CARDIAC/VASCULAR - * Hypertension: * Continue home medications as tolerated. * Monitor on telemetry. RESPIRATORY - * Difficult airway: * Secondary to cellulitis of the anterior neck and concerns for epiglottitis. * Difficult airway tools at bedside. * ENT to evaluated in the AM. GI/NUTRITION - * NPO after midnight. RENAL/LYTES - * No significant electrolyte derangements. - * No concerns at this time. ENDO - * No h/o DM or thyroid dz * BSGs per unit protocol. ISS --> gtt per unit policy. HEME - * Leukocytosis: * In the setting of cellulitis. ID - * Cellulitis of the Neck/Epiglottitis: * Continue w/ Clindamycin, Decadron, Toradol * ENT Eval for ?? surgical intervention. LINES/IV ACCESS - * PIVs x2 DVT PROPHYLAXIS - * Lovenox * SCDs I have personally spent 35 minutes of critical care time in the direct management of this patient. This is a life/limb threatening event. This includes time spent evaluating patient, direct bedside care, chart review, placing orders, interpretation of diagnostic studies, discussion with consultants, patient, and family members, as well as other required patient management activities. This time is exclusive of all separately billable procedures, and teaching time and separate from and in addition to any other critical care service time. Thank you for allowing us to participate in the care of this patient. Please refer to my attending physician's documentation for any further recommendations. (2) Cellulitis of neck: (3) Difficult airway: Admission and Anticipated Discharge Date Admission Date: December 08, 2021 Subjective Feels improved, now has voice back, still difficulty swallowing Results & Data Results & Data ([facility]) Vital Signs (Past 12 Hours) Vital Signs Temp Pulse Pulse Pulse Resp BP Pulse Ox 12/09/21 09:00 65 15 92 12/09/21 08:41 69 22 92 12/09/21 08:00 70 62 14 136/93 97 12/09/21 07:00 36.8 C 64 18 139/87 94 12/09/21 06:00 73 22 139/87 96 12/09/21 05:00 37.2 C 73 21 139/68 98 12/09/21 04:00 36.9 C 65 22 139/69 95 12/09/21 03:00 74 20 143/87 H 97 12/09/21 02:00 71 22 150/76 H 94 12/09/21 01:22 79 12/09/21 01:00 76 24 148/97 H 95 12/09/21 00:45 21 95 12/09/21 00:30 37.7 C H 99 H 21 142/66 H 93 12/09/21 00:10 37.7 C H 99 H 22 142/66 H 93 12/08/21 22:58 75 18 96 12/08/21 22:52 22 94 Coding Level of Care Code 31750 Subs Hosp Care Lvl 3 Diagnoses Admitted to intensive care unit Z78.9 Cellulitis of neck L03.221 Difficult airway T88.4XXA
[2021-12-09] MEDS: ENOXAPARIN INJ 40 MG/0.4 ML SYR SQ SCH (09:59)
[2021-12-09] MEDS: UMECLIDINIUM/VILANTEROL 62.5/25MCG 7 PUFFS/INHALER INH SCH (10:01)
[2021-12-09] MEDS: MULTIVITAMIN TAB PO SCH (10:04)
[2021-12-09] MEDS: FAMOTIDINE 40 MG TABLET PO SCH ×2 (10:04→20:55)
--- NOTE | 2021-12-09 10:07 | Hospitalist Progress Note ---
Date of Service December 09, 2021 Assessment & Plan (1) Acute epiglottitis: (2) Cellulitis of neck: (3) Abscess of neck: Plan: Concerns overnight for developing sepsis 2/2 cellulitis of the neck with presence of abscess as well as narrowing airway from swelling as a result of acute epiglottitis. Pt was recently on a short course of oral prednisone and abx as above with no improvement. After starting on IV abx and decadron she is now doing very well today. ENT planned to evaluate later this afternoon. Appreciate recs. (4) Leukocytosis: Plan: 2/2 infection vs steroid use recently. Clinically improved on current therapy. Cont to monitor. (5) Chronic obstructive pulmonary disease: Plan: chronic, not in exacerbation. (6) Admitted to intensive care unit: (7) DVT prophylaxis: Plan: Lovenox Full Code Dispo-cont ICU Elicia Miranda DO [facility] Hospitalist Admission and Anticipated Discharge Date Admission Date: December 08, 2021 Subjective The patient is a 56-year-old female who presented with cough congestion and a tight throat on 12/05 for 2 days. COVID and flu test were negative. She was afebrile, tachycardic up to 108 bpm and normotensive oxygenating 91% on room air with no retractions or accessory muscle use with breathing. A bio fire panel detected no viral etiology she was given Decadron, doxycycline and DuoNeb in the ER and was sent home with doxycycline and a steroid taper.. She returned on 12/08 reporting swelling in her throat with throat and jaw pain. She had persistent cough and now shortness of breath. She has a dyne aphasia and dysphagia with vomiting. She denies any recent dental work. She was given Decadron 10 mg IV and started on clindamycin. White blood cell count was 21, monoscreen was negative. A CT scan of the neck with contrast revealed a deep space neck infection with anterior cellulitis and narrowing of the laryngeal airway. She was comfortable and not stridorous with no difficulty breathing. She was not hypoxic. She was placed in the ICU and continued on Decadron 10 mg IV every 6 hours. She is alert, speaking without issue She is having now breathing issues and is now able to swallow water and pills without a problem. Review of Systems Review of Systems: All systems were reviewed and negative except as indicated above. Physical Exam Physical Exam: CONSTITUTIONAL: obese, vitals as above, generally well- appearing, NAD EYES: normal conjunctivae, no scleral icterus, ENT: external ear and nose normal, oropharynx clear, no TTP of facial sinuses. NECK: trachea midline, TTP in anterior region, no LAD in cervical/submandibular area. RESPIRATORY: clear to auscultation bilaterally, no crackles, rales or wheezes, normal respiratory effort CARDIOVASCULAR: regular rate and rhythm, S1 and 2 heard without murmurs, gallops or rubs, no JVD, no peripheral edema CHEST: inspection of chest was normal GASTROINTESTINAL: soft, nontender, no hepatomegaly, no guarding MUSCULOSKELETAL: strength 5/5 throughout, head is normocephalic and atraumatic SKIN: warm and dry, NEUROLOGIC: CN 2-12 grossly intact, no sensory deficit, normal cognition, normal speech, no tremor PSYCHIATRIC: alert cooperative and oriented to person, place and time. Results & Data Results & Data ([facility]) Vital Signs (Past 12 Hours) Vital Signs Temp Pulse Pulse Pulse Resp BP Pulse Ox 12/09/21 09:00 65 15 92 12/09/21 08:41 69 22 92 12/09/21 08:00 70 62 14 136/93 97 12/09/21 07:00 36.8 C 64 18 139/87 94 12/09/21 06:00 73 22 139/87 96 12/09/21 05:00 37.2 C 73 21 139/68 98 12/09/21 04:00 36.9 C 65 22 139/69 95 12/09/21 03:00 74 20 143/87 H 97 12/09/21 02:00 71 22 150/76 H 94 12/09/21 01:22 79 12/09/21 01:00 76 24 148/97 H 95 12/09/21 00:45 21 95 12/09/21 00:30 37.7 C H 99 H 21 142/66 H 93 12/09/21 00:10 37.7 C H 99 H 22 142/66 H 93 12/08/21 22:58 75 18 96 12/08/21 22:52 22 94 Laboratory Results Short CBC 12/08/21 12/09/21 Range/Units 17:35 04:57 WBC 21.86 H 17.02 H (4.8-10.8) K/uL Hgb 12.1 11.7 L (12.0-16.0) g/dL Hct 36.8 L 35.3 L (37-47) % Plt Count 258 257 (130-400) K/uL BMP 12/08/21 12/09/21 17:35 04:57 Sodium 138 139 Potassium 3.6 3.6 Chloride 98 101 Carbon Dioxide 31 32 BUN 11 9 Creatinine 0.58 L 0.47 L Glucose 129 H 138 H Calcium 9.2 8.9 Liver Function 12/08/21 Range/Units 17:35 Total Bilirubin 0.7 (0.2-1.0) mg/dl AST 28 (13-39) U/L ALT 17 (7-52) U/L Alkaline Phosphatase 78 (34-104) U/L Albumin 3.7 (3.4-5.0) gm/dl Diagnostic Findings Chest X-Ray 12/08/21 22:37 XR chest 1V portable HISTORY: 56 years-old Female wheeze acute shortness of breath with wheezing COMPARISON: Chest radiographs 12/05/2021 TECHNIQUE: Portable AP view of the chest FINDINGS: The cardiac silhouette is upper limits of normal in size. There is no pneumothorax, pleural effusion, airspace consolidation or overt pulmonary edema. Degenerative changes of the shoulders and spine. IMPRESSION: No acute process. ACT 112: Negative or not required by law. The above report was generated using voice recognition software. It may contain grammatical, syntax or spelling errors. Electronically signed by: Mahesh Stone M.D. 12/09/2021 7:21 AM Medications Administered Current Inpatient Medications Acetaminophen (Acetaminophen 325 Mg Tab) 650 mg PO Q6H PRN PRN Reason: Fever/pain Stop: 01/08/22 00:45 Enoxaparin Sodium (Enoxaparin Inj 40 Mg/0.4 Ml Syr) 40 mg SQ QAM [facility] Stop: 01/08/22 08:59 Last Admin: 12/09/21 09:59 Dose: Not Given Documented by: Famotidine (Famotidine 40 Mg Tablet) 40 mg PO BID [facility] Stop: 01/08/22 08:59 Lactated Ringer's (Lr) 1,000 mls @ 80 mls/hr IV .[id number] ONE Stop: 12/09/21 12:06 Last Admin: 12/09/21 00:55 Dose: 80 mls/hr Documented by: Dexamethasone 10 mg/ Syringe 2.5 mls @ 1 mls/min IV Q6H [facility] Stop: 01/08/22 05:59 Last Admin: 12/09/21 05:22 Dose: 1 mls/min Documented by: Promethazine HCl 12.5 mg/ (Sodium Chloride) 50.5 mls @ 202 mls/hr IV Q6H PRN PRN Reason: Nausea And Vomiting Stop: 01/08/22 00:45 Lactated Ringer's (Lr) 1,000 mls @ 80 mls/hr IV .[id number] [facility] Stop: 01/08/22 11:59 Ceftriaxone Sodium 2,000 mg/ (Dextrose) 70 mls @ 140 mls/hr IV Q24H [facility]; Protocol Stop: 12/19/21 04:59 Last Infusion: 12/09/21 05:32 Dose: Infused Documented by: Ibuprofen (Ibuprofen 600 Mg Tab) 600 mg PO Q6H PRN PRN Reason: Pain Stop: 01/08/22 00:45 Ketorolac Tromethamine (Ketorolac Tromethamine 15 Mg/Ml Vial) 15 mg IV Q6H PRN PRN Reason: Pain Stop: 12/14/21 00:45 Lorazepam (Lorazepam 2 Mg/1 Ml Vial) 0.25 mg IV Q4H PRN PRN Reason: Anxiety Stop: 01/08/22 00:45 Miscellaneous (Icu Protocol For Hyperglycemia) 1 ea N/A PRN PRN; Protocol PRN Reason: Hyperglycemia Protocol Stop: 12/11/21 00:45 Miscellaneous Information (Vancomycin Consult Active) 1 ea N/A UD PRN PRN Reason: Consult Stop: 01/08/22 04:32 Multivitamins (Multivitamin Tab) 1 tab PO DAILY [facility] Stop: 01/08/22 08:59 Umeclidinium/Vilanterol (Umeclidinium/Vilanterol 62.5/25mcg 7 Puffs/Inhaler) 1 puffs INH DAILY [facility] Stop: 01/08/22 08:59 Last Admin: 12/09/21 10:01 Dose: 1 puffs Documented by: (1) Acute epiglottitis Airway obstruction: without obstruction Qualified Code(s): J05.10 - Acute epiglottitis without obstruction
[2021-12-09] MEDS ORDERED: ACETAMINOPHEN 1,000 MG/100 ML VIAL IV PRN (10:30)
--- NOTE | 2021-12-09 11:54 | Pharmacy Report ---
Pharmacy Vanc AUC Short Note - Date of Service December 09, 2021 - Assessment & Plan Assessment * 56 year old F receiving ceftriaxone and vancomycin for treatment of deep space neck infection / epiglottitis, currently being monitored in ICU for potential airway compromise. * SCr stable and at/near baseline Vancomycin * AUC/JO is the preferred PK/PD target for vancomycin * AUC guided dosing is effective and associated with decreased risk of nephrotoxicity compared to traditional trough targets * Regimen selected via AUC * Anticipated steady-state trough level of 14.2 mcg/mL is predicted to achieve target AUC/JO of 400-600 mg/L.hr and may be associated with a 9 % risk of nephrotoxicity * Trough levels are not required with AUC dosing therefore ordered a *random* level with AM labs on 12/11. This level may be slightly higher than the true trough level. Plan * Vancomycin 1500 mg IV q12h * Random level with 12/11 AM labs Pharmacy will continue to follow and will adjust dose/frequency as necessary. Thank you.
[2021-12-09] MEDS ORDERED: OXYMETAZOLINE 0.05% 30 ML BTL STA (14:05)
--- NOTE | 2021-12-09 15:51 | ENT Consultation ---
Date of Consultation December 09, 2021 Assessment & Plan (1) Acute epiglottitis: Scope exam airway is patent but still has thickening of epiglottis. Would recommend continued ICU care for another 24 hours or so. Would continue IV antibiotics as well as dexamethasone q6. Can transition to 10 dex q 8 after 24 hours. Should go home on po clindamycin and I will see her in the office in 4 weeks. As for the possible abscess seen on CT, no obvious PE findings, and appears that IV antibiotics are working and no surgical intervention required. If patient decompensates would recommend intubation and possible transfer to tertiary care center. Dr. Goldsmith will be taking over ENT call starting tomorrow so please contact him with any other questions or concerns. History of Present Illness Reason for Consultation: epiglottitis and possible neck mass Attending Physician: Elicia Miranda, History of Present Illness Please see ER note for details. Patient clinically is improved tolerating liquids. Allergies Allergy/AdvReac Type Severity Reaction Status Date / Time Penicillins Allergy Intermediate RASH Verified 12/08/21 21:49 Home Medications Medication Instructions Recorded Confirmed Type famotidine 40 mg tablet 40 mg PO BID 09/07/20 12/08/21 History ibuprofen 600 mg tablet 600 mg PO DIRECTED PRN 09/07/20 12/08/21 History umeclidinium 62.5 mcg-vilanterol 1 inh INHALATION DAILY PRN 09/07/20 12/08/21 History 25 mcg/actuation powdr for inhalation (Anoro Ellipta) albuterol sulfate 90 mcg/actuation 2 inh INHALATION Q6H PRN #8.5 g 12/05/21 12/08/21 Rx aerosol inhaler doxycycline hyclate 100 mg capsule 100 mg PO BID 7 Days #14 cap 12/05/21 12/08/21 Rx prednisone 20 mg tablet 60 mg PO DAILY 4 Days #12 tab 12/05/21 12/08/21 Rx acetaminophen 500 mg tablet 1,000 mg PO Q6H PRN 12/08/21 12/08/21 History (Tylenol Extra Strength) multivitamin 1 tab PO DAILY 12/08/21 12/08/21 History sulindac 150 mg tablet 150 mg PO BID 12/08/21 12/08/21 History Patient History Medical History Carpal tunnel syndrome bilat Chronic obstructive pulmonary disease rare res inh use DVT (deep venous thrombosis) 10 yrs ago from prolonged standing > right leg > thinners > no longer on GERD (gastroesophageal reflux disease) Hypertension pt denies > no meds Osteoarthritis Sleep apnea cpap Surgical History History of adenoidectomy History of ankle surgery left History of repair of rotator cuff left x2 History of tonsillectomy History of tooth extraction wisdom teeth Family History Mother Diabetes Social History Smoking Status: Former smoker Second Hand Exposure: No; Do You Dip or Chew Tobacco: No; Tobacco Cessation Education Requested by Patient: No Hx Alcohol Use: No Hx Substance Use: No Preferred Language: [place] Citizen Communication Ability: Effective Communication Ability Comment: Pt states she is unable to read and unable to spell good Collections Professional Required: No Beliefs That Will Affect Care: None Current Living Situation: Family Current Living Situation Comment: Home with sister, states they help each other Other Information That Helps Us Care for You: No Feels Safe at Home: Yes Safety Concerns: Feels Safe At This Time Assistive Devices: None Review of Systems Review of Systems: negative except per HPI Physical Exam Physical Exam: aao x3 NAD ENMT: Scope exam showed thickening of epiglottis with patent airway. Non purulent drainage present Neck: soft. trachea midline. no fluctuance or erythema Results & Data ([facility]) Vital Signs (Past 12 Hours) Vital Signs Temp Pulse Pulse Pulse Resp BP BP 12/09/21 11:30 63 14 12/09/21 11:00 37 C 66 17 129/67 12/09/21 10:30 74 17 12/09/21 10:06 80 17 162/72 H 12/09/21 10:00 68 17 12/09/21 09:30 68 18 12/09/21 09:00 65 15 12/09/21 08:41 69 22 12/09/21 08:00 70 62 14 136/93 12/09/21 07:00 36.8 C 64 18 139/87 12/09/21 06:00 73 22 139/87 12/09/21 05:00 37.2 C 73 21 139/68 12/09/21 04:00 36.9 C 65 22 139/69 Pulse Ox 12/09/21 11:30 95 12/09/21 11:00 92 12/09/21 10:30 91 12/09/21 10:06 95 12/09/21 10:00 94 12/09/21 09:30 90 12/09/21 09:00 92 12/09/21 08:41 92 12/09/21 08:00 97 12/09/21 07:00 94 12/09/21 06:00 96 12/09/21 05:00 98 12/09/21 04:00 95 (1) Acute epiglottitis Airway obstruction: without obstruction Qualified Code(s): J05.10 - Acute epiglottitis without obstruction
[2021-12-09] MEDS: LACTATED RINGER'S 1,000 ML IV SCH ×2 (17:12→23:59)
[2021-12-09] MEDS: VANCOMYCIN HCL 1,500 MG in SODIUM CHLORIDE 0.9% 500 ML IV SCH (17:15)
[2021-12-10] MEDS: cefTRIAXone SODIUM 2,000 MG in DEXTROSE 5% 50 ML IV SCH (04:56)
[2021-12-10] MEDS: dexAMETHasone 10 MG in SYRINGE 0 ML IV SCH ×3 (04:56→21:51)
[2021-12-10] MEDS: VANCOMYCIN HCL 1,500 MG in SODIUM CHLORIDE 0.9% 500 ML IV SCH ×2 (04:56→18:47)
[2021-12-10 05:30] LABS: Basophils # (auto) 0.01 K/uL (0-0.2); Basophils % (auto) 0.1 %; Hematocrit (blood only) 33.9 % (37-47); Hemoglobin 11.3 g/dL (12.0-16.0); Immature Granulocytes # (auto) 0.21 K/uL (0.00-0.02); Immature Granulocytes % (auto) 1.3 %; Lymphocytes # (auto) 1.91 K/uL (1.2-3.4); Lymphocytes % (auto) 11.7 %; Mean Corpuscular Hemoglobin 32.4 pg (25-34); Mean Corpuscular Hgb Conc 33.3 g/dL (32-36); Mean Corpuscular Volume 97.1 fL (80-100); Mean Platelet Volume 9.1 fL (7.4-10.4); Monocytes # (auto) 0.74 K/uL (0.11-0.59); Monocytes % (auto) 4.5 %; Neutrophils % (auto) 82.4 %; Platelet Count 276 K/uL (130-400); RDW Coefficient of Variation 14.8 % (11.5-14.5); RDW Standard Deviation 52.6 fL (36.4-46.3); Red Blood Count 3.49 M/uL (4.2-5.4); White Blood Count 16.27 K/uL (4.8-10.8)
[2021-12-10 05:41] LABS: BUN Creatinine Ratio 27.3 (10-20); Creatinine Clr Calc Pharmacy 152.5 ml/min; Est GFR (African American) 123.2 ml/min; Est GFR (Non-African American) 106.3 ml/min; Magnesium 2.2 mg/dl (1.7-2.4); Phosphorus 4.4 mg/dl (2.5-4.9); Potassium 3.7 mmol/L (3.5-5.1)
[2021-12-10] MEDS ORDERED: POTASSIUM CHLORIDE CRTAB 20 MEQ TABCR PO STA (06:38)
[2021-12-10] MEDS: ENOXAPARIN INJ 40 MG/0.4 ML SYR SQ SCH (08:43)
[2021-12-10] MEDS: FAMOTIDINE 40 MG TABLET PO SCH ×2 (08:44→21:34)
[2021-12-10] MEDS: MULTIVITAMIN TAB PO SCH (08:44)
[2021-12-10] MEDS: UMECLIDINIUM/VILANTEROL 62.5/25MCG 7 PUFFS/INHALER INH SCH (08:44)
--- NOTE | 2021-12-10 08:51 | Hospitalist Progress Note ---
Date of Service December 10, 2021 Assessment & Plan (1) Acute epiglottitis: (2) Cellulitis of neck: (3) Abscess of neck: Plan: Cellulitis of the neck with presence of abscess as well as narrowing airway from swelling as a result of acute epiglottitis. Pt was recently on a short course of oral prednisone and abx as above with no improvement. After starting on IV abx and decadron she is now doing very well today. De-escalate decadron per ENT instruction. Cont IV abx for now and convert to PO clinda at discharge. (4) Leukocytosis: Plan: 2/2 infection vs steroid use recently. Clinically improved on current therapy. Cont to monitor. (5) Chronic obstructive pulmonary disease: Plan: chronic, not in exacerbation. (6) Admitted to intensive care unit: (7) DVT prophylaxis: Plan: Lovenox Full Code Dispo-transfer to floor DO Deysi Arevalo Hospitalist Admission and Anticipated Discharge Date Admission Date: December 08, 2021 Subjective The patient is a 56-year-old female who presented with epiglottitis She is alert, speaking without issue She is tolerating food Decadron has been decreased per ENT instruction and she remains on IV abx Downgraded to med tele Reports some persistent pain in anterior throat area, but otherwise she is feeling well and in good spirits. Review of Systems Review of Systems: All systems were reviewed and negative except as indicated above. Physical Exam Physical Exam: CONSTITUTIONAL: obese, vitals as above, generally well- appearing, NAD EYES: normal conjunctivae, no scleral icterus, ENT: external ear and nose normal, oropharynx clear, no TTP of facial sinuses. NECK: trachea midline, TTP in anterior region, no LAD in cervical/submandibular area. RESPIRATORY: clear to auscultation bilaterally, no crackles, rales or wheezes, normal respiratory effort CARDIOVASCULAR: regular rate and rhythm, S1 and 2 heard without murmurs, gallops or rubs, no JVD, no peripheral edema CHEST: inspection of chest was normal GASTROINTESTINAL: soft, nontender, no hepatomegaly, no guarding MUSCULOSKELETAL: strength 5/5 throughout, head is normocephalic and atraumatic SKIN: warm and dry, NEUROLOGIC: CN 2-12 grossly intact, no sensory deficit, normal cognition, normal speech, no tremor PSYCHIATRIC: alert cooperative and oriented to person, place and time. Results & Data Results & Data ([facility]) Vital Signs (Past 12 Hours) Vital Signs Temp Pulse Pulse Resp BP BP Pulse Ox 12/10/21 06:00 36.7 C 56 L 23 155/82 H 96 12/10/21 05:30 72 31 H 95 12/10/21 05:00 36.7 C 72 23 152/75 H 97 12/10/21 04:30 61 8 L 89 L 12/10/21 04:01 51 L 18 136/66 95 12/10/21 04:00 52 L 18 96 12/10/21 03:30 51 L 17 96 12/10/21 03:01 53 L 23 130/69 94 12/10/21 03:00 56 L 25 H 94 12/10/21 02:30 57 L 24 96 12/10/21 02:01 56 L 24 150/61 H 96 12/10/21 02:00 54 L 23 97 12/10/21 01:30 63 26 H 97 12/10/21 01:01 62 27 H 155/62 H 96 12/10/21 01:00 60 25 H 97 12/10/21 00:30 73 29 H 97 12/10/21 00:15 36.5 C 12/10/21 00:00 71 36 H 134/100 96 12/09/21 23:30 55 L 17 98 12/09/21 23:00 66 25 H 154/76 H 97 12/09/21 22:30 57 L 24 96 12/09/21 22:00 56 L 23 149/77 H 97 12/09/21 21:30 79 79 0 L 145/82 H 97 12/09/21 21:01 67 22 145/82 H 97 12/09/21 21:00 80 23 77 L Laboratory Results Short CBC 12/10/21 Range/Units 05:03 WBC 16.27 H (4.8-10.8) K/uL Hgb 11.3 L (12.0-16.0) g/dL Hct 33.9 L (37-47) % Plt Count 276 (130-400) K/uL BMP 12/10/21 05:03 Sodium 140 Potassium 3.7 Chloride 101 Carbon Dioxide 32 BUN 15 Creatinine 0.55 L Glucose 152 H Calcium 9.0 Medications Administered Current Inpatient Medications Acetaminophen (Acetaminophen 325 Mg Tab) 650 mg PO Q6H PRN PRN Reason: Fever/pain Stop: 01/08/22 00:45 Enoxaparin Sodium (Enoxaparin Inj 40 Mg/0.4 Ml Syr) 40 mg SQ QAM [facility] Stop: 01/08/22 08:59 Last Admin: 12/10/21 08:43 Dose: 40 mg Documented by: Famotidine (Famotidine 40 Mg Tablet) 40 mg PO BID [facility] Stop: 01/08/22 08:59 Last Admin: 12/10/21 08:44 Dose: 40 mg Documented by: Dexamethasone 10 mg/ Syringe 2.5 mls @ 1 mls/min IV Q6H [facility] Stop: 01/08/22 05:59 Last Admin: 12/10/21 04:56 Dose: 1 mls/min Documented by: Promethazine HCl 12.5 mg/ (Sodium Chloride) 50.5 mls @ 202 mls/hr IV Q6H PRN PRN Reason: Nausea And Vomiting Stop: 01/08/22 00:45 Lactated Ringer's (Lr) 1,000 mls @ 80 mls/hr IV .[id number] [facility] Stop: 01/08/22 11:59 Last Admin: 12/09/21 23:59 Dose: 80 mls/hr Documented by: Ceftriaxone Sodium 2,000 mg/ (Dextrose) 70 mls @ 140 mls/hr IV Q24H [facility]; Protocol Stop: 12/19/21 04:59 Last Infusion: 12/10/21 06:00 Dose: Infused Documented by: Acetaminophen (Ofirmev) 1,000 mg in 100 mls @ 400 mls/hr IV Q8H PRN; Protocol PRN Reason: Fever/pain Stop: 12/12/21 10:29 Vancomycin HCl 1,500 mg/ (Sodium Chloride) 530 mls @ 200 mls/hr IV Q12H [facility]; Protocol Stop: 12/19/21 17:59 Last Infusion: 12/10/21 08:47 Dose: Infused Documented by: Ketorolac Tromethamine (Ketorolac Tromethamine 15 Mg/Ml Vial) 15 mg IV Q6H PRN PRN Reason: Pain Stop: 12/14/21 00:45 Lorazepam (Lorazepam 2 Mg/1 Ml Vial) 0.25 mg IV Q4H PRN PRN Reason: Anxiety Stop: 01/08/22 00:45 Miscellaneous (Icu Protocol For Hyperglycemia) 1 ea N/A PRN PRN; Protocol PRN Reason: Hyperglycemia Protocol Stop: 12/11/21 00:45 Miscellaneous Information (Vancomycin Consult Active) 1 ea N/A UD PRN PRN Reason: Consult Stop: 01/08/22 04:32 Multivitamins (Multivitamin Tab) 1 tab PO DAILY [facility] Stop: 01/08/22 08:59 Last Admin: 12/10/21 08:44 Dose: 1 tab Documented by: Umeclidinium/Vilanterol (Umeclidinium/Vilanterol 62.5/25mcg 7 Puffs/Inhaler) 1 puffs INH DAILY [facility] Stop: 01/08/22 08:59 Last Admin: 12/10/21 08:44 Dose: 1 puffs Documented by: (1) Acute epiglottitis Airway obstruction: without obstruction Qualified Code(s): J05.10 - Acute epiglottitis without obstruction
--- NOTE | 2021-12-10 09:22 | Critical Care Progress Note ---
Date of Service December 10, 2021 Assessment & Plan (1) Epiglottitis: Plan: Continue current IV antibiotics until patient able to swallow and then transition to clindamycin -Transitioned from Decadron every 6 to Decadron every 8 for 24 hours then DC Patient request to try diet, advance diet as tolerated Stable for downgrade out of ICU. Admission and Anticipated Discharge Date Admission Date: December 08, 2021 Subjective Feels improved compared to yesterday, swallowing little bit easier would like to try a minced and moist diet Physical Exam Physical Exam: General: Alert. nontoxic. Skin: Warm, dry, Head: Atraumatic Ears, nose, mouth and throat: airway patent, normal voice, no cellulitis or streaking lymphangitis Cardiovascular: Normal peripheral perfusion Respiratory: no respiratory distress Gastrointestinal: Non distended Musculoskeletal: No deformity Results & Data Results & Data ([facility]) Vital Signs (Past 12 Hours) Vital Signs Temp Pulse Pulse Resp BP BP Pulse Ox 12/10/21 06:00 36.7 C 56 L 23 155/82 H 96 12/10/21 05:30 72 31 H 95 12/10/21 05:00 36.7 C 72 23 152/75 H 97 12/10/21 04:30 61 8 L 89 L 12/10/21 04:01 51 L 18 136/66 95 12/10/21 04:00 52 L 18 96 12/10/21 03:30 51 L 17 96 12/10/21 03:01 53 L 23 130/69 94 12/10/21 03:00 56 L 25 H 94 12/10/21 02:30 57 L 24 96 12/10/21 02:01 56 L 24 150/61 H 96 12/10/21 02:00 54 L 23 97 12/10/21 01:30 63 26 H 97 12/10/21 01:01 62 27 H 155/62 H 96 12/10/21 01:00 60 25 H 97 12/10/21 00:30 73 29 H 97 12/10/21 00:15 36.5 C 12/10/21 00:00 71 36 H 134/100 96 12/09/21 23:30 55 L 17 98 12/09/21 23:00 66 25 H 154/76 H 97 12/09/21 22:30 57 L 24 96 12/09/21 22:00 56 L 23 149/77 H 97 12/09/21 21:30 79 79 0 L 145/82 H 97 12/09/21 21:01 67 22 145/82 H 97 12/09/21 21:00 80 23 77 L Critical Care Results & Data Vital Signs (Past 12 Hours) Vital Signs Temp Pulse Pulse Resp BP BP Pulse Ox 12/10/21 06:00 36.7 C 56 L 23 155/82 H 96 12/10/21 05:30 72 31 H 95 12/10/21 05:00 36.7 C 72 23 152/75 H 97 12/10/21 04:30 61 8 L 89 L 12/10/21 04:01 51 L 18 136/66 95 12/10/21 04:00 52 L 18 96 12/10/21 03:30 51 L 17 96 12/10/21 03:01 53 L 23 130/69 94 12/10/21 03:00 56 L 25 H 94 12/10/21 02:30 57 L 24 96 12/10/21 02:01 56 L 24 150/61 H 96 12/10/21 02:00 54 L 23 97 12/10/21 01:30 63 26 H 97 12/10/21 01:01 62 27 H 155/62 H 96 12/10/21 01:00 60 25 H 97 12/10/21 00:30 73 29 H 97 12/10/21 00:15 36.5 C 12/10/21 00:00 71 36 H 134/100 96 12/09/21 23:30 55 L 17 98 12/09/21 23:00 66 25 H 154/76 H 97 12/09/21 22:30 57 L 24 96 12/09/21 22:00 56 L 23 149/77 H 97 12/09/21 21:30 79 79 0 L 145/82 H 97 Lab & Micro Results (Past 24 Hours) RBC 3.49 M/uL (4.2-5.4) L 12/10/21 WBC 16.27 K/uL (4.8-10.8) H 12/10/21 Hgb 11.3 g/dL (12.0-16.0) L 12/10/21 Hct 33.9 % (37-47) L 12/10/21 MCV 97.1 fL (80-100) 12/10/21 MCH 32.4 pg (25-34) 12/10/21 MCHC 33.3 g/dL (32-36) 12/10/21 RDW Standard Deviation 52.6 fL (36.4-46.3) H 12/10/21 RDW Coefficient of Variation 14.8 % (11.5-14.5) H 12/10/21 Plt Count 276 K/uL (130-400) 12/10/21 MPV 9.1 fL (7.4-10.4) 12/10/21 Neutrophils (%) (Auto) 82.4 % 12/10/21 Lymphocytes (%) (Auto) 11.7 % 12/10/21 Monocytes # (Auto) 0.74 K/uL (0.11-0.59) H 12/10/21 Eosinophils # (Auto) 0.00 K/uL (0-0.5) 12/10/21 Immature Granulocyte % (Auto) 1.3 % 12/10/21 Neutrophils # (Auto) 13.40 K/uL (1.4-6.5) H 12/10/21 Lymphocytes # (Auto) 1.91 K/uL (1.2-3.4) 12/10/21 Monocytes # (Auto) 0.74 K/uL (0.11-0.59) H 12/10/21 Eosinophils # (Auto) 0.00 K/uL (0-0.5) 12/10/21 Basophils # (Auto) 0.01 K/uL (0-0.2) 12/10/21 Immature Granulocyte # (Auto) 0.21 K/uL (0.00-0.02) H 12/10/21 Na 140 mmol/L (136-145) 12/10/21 K 3.7 mmol/L (3.5-5.1) 12/10/21 Cl 101 mmol/L (98-107) 12/10/21 CO2 32 mmol/L (21-32) 12/10/21 Anion Gap 7 (3-11) 12/10/21 BUN 15 mg/dl (6-23) 12/10/21 Creatinine 0.55 mg/dl (0.6-1.2) L 12/10/21 Estimated GFR ( Amer) 123.2 ml/min 12/10/21 Estimated GFR (Non-Af Amer) 106.3 ml/min 12/10/21 BUN/Creatinine Ratio 27.3 (10-20) H 12/10/21 Glu 152 mg/dl (70-99(Fasting)) H 12/10/21 Ca 9.0 mg/dl (8.5-10.1) 12/10/21 Phosphorus Level 4.4 mg/dl (2.5-4.9) 12/10/21 Mg 2.2 mg/dl (1.7-2.4) 12/10/21 05:03 12/10/21 Calcium Level 9.0 mg/dl (8.5-10.1) 12/10/21 05:03 12/10/21 Microbiology 12/08/21 20:17 Aerobic Blood Culture - Preliminary Blood No growth in Aerobic bottle after 24 hours. Anaerobic Blood Culture - Preliminary No growth in Anaerobic bottle after 24 hours. 12/08/21 20:15 Aerobic Blood Culture - Preliminary Blood No growth in Aerobic bottle after 24 hours. Anaerobic Blood Culture - Preliminary No growth in Anaerobic bottle after 24 hours. I & O Totals 24 Hours 12/09/21 12/10/21 12/11/21 06:59 06:59 06:59 Intake Total 1182 / 1182 3392.667 / 3392.667 530 / 530 Output Total 725 / 725 Balance 1182 / 1182 2667.667 / 2667.667 530 / 530 Cumulative 12/08/21 16:06 thru 12/10/21 08:47 Intake Total 5104.667 Output Total 725 Balance 4379.667 RT Ventilator Mngmt (Last Documented) Ventilator Ordered Settings Respiratory Rate 23 12/10/21 06:00 Ventilator - PT Measurements Respiratory Rate 23 End-Tidal CO2 35 Coding Level of Care Code 29978 Subseq Hosp Care Lvl 3 Diagnoses Epiglottitis J05.10
[2021-12-10] MEDS: ACETAMINOPHEN 325 MG TAB PO PRN (10:10)
[2021-12-11] MEDS ORDERED: VANCOMYCIN TROUGH ONE (05:30)
[2021-12-11 05:52] LABS: Basophils # (auto) 0.01 K/uL (0-0.2); Basophils % (auto) 0.1 %; Eosinophils # (auto) 0.01 K/uL (0-0.5); Eosinophils % (auto) 0.1 %; Hematocrit (blood only) 34.8 % (37-47); Hemoglobin 11.3 g/dL (12.0-16.0); Immature Granulocytes # (auto) 0.32 K/uL (0.00-0.02); Immature Granulocytes % (auto) 2.3 %; Lymphocytes # (auto) 1.88 K/uL (1.2-3.4); Lymphocytes % (auto) 13.7 %; Mean Corpuscular Hemoglobin 31.7 pg (25-34); Mean Corpuscular Hgb Conc 32.5 g/dL (32-36); Mean Corpuscular Volume 97.8 fL (80-100); Mean Platelet Volume 8.8 fL (7.4-10.4); Monocytes # (auto) 1.01 K/uL (0.11-0.59); Monocytes % (auto) 7.4 %; Neutrophils # (auto) 10.47 K/uL (1.4-6.5); Neutrophils % (auto) 76.4 %; Platelet Count 315 K/uL (130-400); RDW Coefficient of Variation 14.9 % (11.5-14.5); Red Blood Count 3.56 M/uL (4.2-5.4)
[2021-12-11] MEDS: cefTRIAXone SODIUM 2,000 MG in DEXTROSE 5% 50 ML IV SCH (06:05)
[2021-12-11 06:15] LABS: BUN Creatinine Ratio 35.1 (10-20); Calcium 8.9 mg/dl (8.5-10.1); Creatinine Clr Calc Pharmacy 147.6 ml/min; Est GFR (African American) 121.8 ml/min; Est GFR (Non-African American) 105.1 ml/min; Magnesium 2.3 mg/dl (1.7-2.4); Phosphorus 4.2 mg/dl (2.5-4.9)
[2021-12-11] MEDS: dexAMETHasone 10 MG in SYRINGE 0 ML IV SCH (06:36)
[2021-12-11] MEDS: VANCOMYCIN HCL 1,500 MG in SODIUM CHLORIDE 0.9% 500 ML IV SCH ×2 (08:28→17:28)
[2021-12-11] MEDS: ENOXAPARIN INJ 40 MG/0.4 ML SYR SQ SCH (08:28)
[2021-12-11] MEDS: MULTIVITAMIN TAB PO SCH (08:29)
[2021-12-11] MEDS: FAMOTIDINE 40 MG TABLET PO SCH ×2 (08:29→22:25)
[2021-12-11] MEDS: UMECLIDINIUM/VILANTEROL 62.5/25MCG 7 PUFFS/INHALER INH SCH (08:29)
--- NOTE | 2021-12-11 08:47 | Hospitalist Progress Note ---
Date of Service December 11, 2021 Assessment & Plan (1) Acute epiglottitis: (2) Cellulitis of neck: (3) Abscess of neck: Plan: Cellulitis of the neck with presence of abscess as well as narrowing airway from swelling as a result of acute epiglottitis. Pt was recently on a short course of oral prednisone and abx as above with no improvement. After starting on IV abx and decadron, she improved and continues to do well - IV decadron course completed per ENT/Pulm - Will continue IV ABx for 24 more hours. Likely will change to po tomorrow and at discharge (4) Leukocytosis: Plan: Improving, 2/2 infection vs steroid use recently. Clinically improved on current therapy. Cont to monitor. (5) Chronic obstructive pulmonary disease: Plan: chronic, not in exacerbation. (6) DVT prophylaxis: Plan: Lovenox Full Code Admission and Anticipated Discharge Date Admission Date: December 08, 2021 Subjective No new issues. She is feeling better. Denies any dysphagia, dyspnea, drooling. Tolerating po without issues. States multiple loose stools and asking if that is from ABx. Physical Exam Physical Exam: General: Lying comfortably in bed, not in distress, on NC HEENT: EOMI, PARTHA, MMM Chest: Clear breath sounds bilaterally, no wheezes or crackles CVS: Regular rate and rhythm, normal heart sounds, no murmur Abdomen: Soft, non tender, not distended, normal bowel sounds Neuro: Awake, alert, oriented, conversing well, non focal Extremities: No cyanosis, clubbing or edema Results & Data Results & Data ([facility]) Vital Signs (Past 12 Hours) Vital Signs Temp Pulse Resp BP Pulse Ox 12/11/21 06:01 56 L 24 150/70 H 95 12/11/21 06:00 52 L 23 91 12/11/21 05:43 76 27 H 94 12/11/21 05:01 54 L 22 137/74 96 12/11/21 05:00 53 L 25 H 93 12/11/21 04:30 66 26 H 95 12/11/21 04:07 36.9 C 12/11/21 04:00 56 L 23 94 12/11/21 03:30 59 L 24 94 12/11/21 03:00 59 L 25 H 91 12/11/21 02:30 98 H 23 97 12/11/21 02:00 51 L 18 121/61 93 12/11/21 01:30 51 L 17 99 12/11/21 01:00 48 L 19 124/67 100 12/11/21 00:30 55 L 19 98 12/11/21 00:00 52 L 21 98 12/10/21 23:30 56 L 18 98 12/10/21 23:00 55 L 20 94 12/10/21 22:30 74 27 H 98 12/10/21 22:01 77 16 122/60 12/10/21 22:00 82 21 12/10/21 21:34 85 26 H 153/71 H 12/10/21 21:30 78 27 H 12/10/21 21:00 63 19 Laboratory Results Short CBC 12/11/21 Range/Units 05:13 WBC 13.70 H (4.8-10.8) K/uL Hgb 11.3 L (12.0-16.0) g/dL Hct 34.8 L (37-47) % Plt Count 315 (130-400) K/uL [facility] 12/11/21 05:13 Sodium 139 Potassium 4.0 Chloride 102 Carbon Dioxide 31 BUN 20 Creatinine 0.57 L Glucose 136 H Calcium 8.9 Medications Administered Current Inpatient Medications Acetaminophen (Acetaminophen 325 Mg Tab) 650 mg PO Q6H PRN PRN Reason: Fever/pain Stop: 01/08/22 00:45 Last Admin: 12/10/21 10:10 Dose: 650 mg Documented by: Enoxaparin Sodium (Enoxaparin Inj 40 Mg/0.4 Ml Syr) 40 mg SQ QAM [facility] Stop: 01/08/22 08:59 Last Admin: 12/11/21 08:28 Dose: 40 mg Documented by: Famotidine (Famotidine 40 Mg Tablet) 40 mg PO BID [facility] Stop: 01/08/22 08:59 Last Admin: 12/11/21 08:29 Dose: 40 mg Documented by: Promethazine HCl 12.5 mg/ (Sodium Chloride) 50.5 mls @ 202 mls/hr IV Q6H PRN PRN Reason: Nausea And Vomiting Stop: 01/08/22 00:45 Ceftriaxone Sodium 2,000 mg/ (Dextrose) 70 mls @ 140 mls/hr IV Q24H [facility]; Protocol Stop: 12/19/21 04:59 Last Infusion: 12/11/21 07:18 Dose: Infused Documented by: Acetaminophen (Ofirmev) 1,000 mg in 100 mls @ 400 mls/hr IV Q8H PRN; Protocol PRN Reason: Fever/pain Stop: 12/12/21 10:29 Vancomycin HCl 1,500 mg/ (Sodium Chloride) 530 mls @ 200 mls/hr IV Q12H [facility]; Protocol Stop: 12/19/21 17:59 Last Infusion: 12/11/21 11:44 Dose: Infused Documented by: Miscellaneous Information (Vancomycin Consult Active) 1 ea N/A UD PRN PRN Reason: Consult Stop: 01/08/22 04:32 Multivitamins (Multivitamin Tab) 1 tab PO DAILY [facility] Stop: 01/08/22 08:59 Last Admin: 12/11/21 08:29 Dose: 1 tab Documented by: Umeclidinium/Vilanterol (Umeclidinium/Vilanterol 62.5/25mcg 7 Puffs/Inhaler) 1 puffs INH DAILY [facility] Stop: 01/08/22 08:59 Last Admin: 12/11/21 08:29 Dose: 1 puffs Documented by: (1) Acute epiglottitis Airway obstruction: without obstruction Qualified Code(s): J05.10 - Acute epiglottitis without obstruction
--- NOTE | 2021-12-11 14:20 | Pharmacy Report ---
Pharmacy Vanc AUC Short Note - Date of Service December 11, 2021 - Assessment & Plan Assessment * 56 year old F receiving ceftriaxone and vancomycin for treatment of deep space neck infection / epiglottitis. Plan to transition to clindamycin po at some point, but not yet today per Dr. De Leon * SCr stable and at/near baseline Vancomycin * AUC/JO is the preferred PK/PD target for vancomycin * AUC guided dosing is effective and associated with decreased risk of nephrotoxicity compared to traditional trough targets * Regimen selected via AUC * Random level of 10.4 mcg/mL is associated with an AUC/JO of 444 mg/L*hr which is in the therapeutic range of 400-600 mg/L*hr * No further levels ordered for now as anticipate a change to po, possibly as early as tomorrow per Dr. De Leon Plan * Continue vancomycin 1500 mg IV q12h * May consider rechecking level in 48-72 hours or if renal function changes Pharmacy will continue to follow and will adjust dose/frequency as necessary. Thank you.
[2021-12-12 05:13] LABS: Hematocrit (blood only) 33.3 % (37-47); Hemoglobin 10.5 g/dL (12.0-16.0); Mean Corpuscular Hemoglobin 30.7 pg (25-34); Mean Corpuscular Hgb Conc 31.5 g/dL (32-36); Mean Corpuscular Volume 97.4 fL (80-100); Mean Platelet Volume 8.8 fL (7.4-10.4); Platelet Count 289 K/uL (130-400); Red Blood Count 3.42 M/uL (4.2-5.4); White Blood Count 12.53 K/uL (4.8-10.8)
[2021-12-12 05:27] LABS: BUN Creatinine Ratio 22.7 (10-20); Calcium 8.6 mg/dl (8.5-10.1); Creatinine Clr Calc Pharmacy 127.4 ml/min; Est GFR (African American) 116.1 ml/min; Est GFR (Non-African American) 100.1 ml/min; Magnesium 2.3 mg/dl (1.7-2.4); Phosphorus 3.4 mg/dl (2.5-4.9); Potassium 3.7 mmol/L (3.5-5.1)
[2021-12-12 05:33] LABS: ALC (manual) 2.64 K/uL (1.2-3.4); ANC (manual) 8.78 K/uL (1.4-6.5); Hypochromasia Present; Lymphocytes # (manual) 2.64 K/uL (1.2-3.4); Lymphocytes % (manual) 21.1 %; Monocytes # (manual) 0.66 K/uL (0.11-0.59); Monocytes % (manual) 5.3 %; Myelocytes # (manual) 0.44 K/uL (0-0); Myelocytes % (manual) 3.5 %; Neutrophils # (manual) 8.78 K/uL (1.4-6.5); Neutrophils % (manual) 70.1 %
[2021-12-12] MEDS: cefTRIAXone SODIUM 2,000 MG in DEXTROSE 5% 50 ML IV SCH (05:46)
[2021-12-12] MEDS: VANCOMYCIN HCL 1,500 MG in SODIUM CHLORIDE 0.9% 500 ML IV SCH (06:09)
[2021-12-12] MEDS: ENOXAPARIN INJ 40 MG/0.4 ML SYR SQ SCH (07:52)
[2021-12-12] MEDS: FAMOTIDINE 40 MG TABLET PO SCH ×2 (07:52→19:52)
[2021-12-12] MEDS: MULTIVITAMIN TAB PO SCH (07:52)
[2021-12-12] MEDS: UMECLIDINIUM/VILANTEROL 62.5/25MCG 7 PUFFS/INHALER INH SCH (07:53)
[2021-12-12] MEDS ORDERED: LIDOCAINE 2% JELLY 5 ML TUBE ONE (13:54)
[2021-12-12] MEDS ORDERED: CLINDAMYCIN HCL 150 MG CAP PO SCH ×2 (14:00)
--- NOTE | 2021-12-12 14:23 | Ears,Nose,Throat Progress Note ---
Date of Service December 12, 2021 Assessment & Plan (1) Acute epiglottitis: Plan: FiberOptic/Flexible LARYNGOSCOPY exam airway completed at bedside. Glottic Airway is patent - vocal cords are CLEAR. NO airway compromise - but still has thickening of epiglottis - mostly on the Lingual Surface. Arytenoids are within normal size and NOT compromising the airway. Aryepiglottic Folds are THIN and SMOOTH. MUCOSA is PINK - NOT Erythematous. RESOLVING past exudates. Would recommend continued ICU care for another 24 hours. Would continue antibiotics - perhaps IV as the FLUID collection seen in the ANTERIOR Neck is a possible abscess seen on the NECK CT of [08 DEC 2021]. Would make patient NPO after midnight - (had Lunch this afternoon) and may have dinner tonight. Would make patient NPO after midnight and Repeat NECK CT WITH CONTRAST tomorrow - to assess ANTERIOR NECK FLUID to Rule out IF it has resolved or become a more distinct Abscess (?). Present on Admission?: Yes Admission and Anticipated Discharge Date Admission Date: December 08, 2021 Subjective Patient in ICU was feeling better. NO airway breathing issues. Was on IV antibiotics - now just CLINDAMYCIN 450 mg q8 Denies any dysphagia, dyspnea, drooling this am. Given regular meal for Lunch - [place] [employer]inner - and swallowed without issues, but AFTER EATING - she is complaining of THROAT IRRITATIONS and "Tingling". Breathing is OK - NO Stridor, NO wheezing. . Physical Exam Physical Exam: Alert and Oriented. NO acute distress, breathing well - NO stridor. Swallowing her own secretions still. But Patient is Anxious AFTER eating her meal. Constitutional: WD/WN, vitals as above Temp taken now - 37 C Eyes: PERRL, conjunctivae normal, anicteric sclerae ENMT: Ears: no TM abnormality Nose: no external nose abnormality, no turbinate abnormality and no nasal discharge Mouth: no oropharynx abnormality, no oral mucosal abnormality, no tongue abnormality and no muffled voice Throat: uvula midline and + tonsils absent; no uvular edema Pharynx and Larynx inspected by Flex/FiberOptic Scope at bedside. (See Procedure Note.) Findings included in this note. (see Below) Neck: normal visual inspection; no tracheal deviation Neck exam - shows trachea to be midline. Obese neck. NO palpable adenopathy. Some fulness of the Larynx persists. Results & Data ([facility]) Vital Signs (Past 12 Hours) Vital Signs Temp Pulse Resp BP Pulse Ox 12/12/21 12:00 36.6 C 16 98 12/12/21 08:00 67 12/12/21 06:30 52 L 23 99 12/12/21 06:00 59 L 27 H 97 12/12/21 05:30 49 L 15 99 12/12/21 05:04 75 15 12/12/21 04:50 36.5 C 12/12/21 04:46 67 17 133/73 99 12/12/21 04:30 47 L 20 12/12/21 04:00 49 L 19 12/12/21 03:30 47 L 19 12/12/21 03:00 46 L 21 12/12/21 02:30 54 L 26 H Laboratory Results WBC = 12.5 TODAY - down from 16.3 in admission Hgb / Hct = 10.5 g/dL / 33.3% Blood Cultures = NO Growth after 48 hrs. (1) Acute epiglottitis Airway obstruction: without obstruction Qualified Code(s): J05.10 - Acute epiglottitis without obstruction
--- NOTE | 2021-12-12 15:00 | Procedure Note ---
Procedure Note Date of Service December 12, 2021 Note PROCEDURE: FLEXIBLE LARYNGOSCOPY - Bedside. Surgeon: Nelson Goldsmith MD, FACS Anesthesia: Topical 2% Viscous Lidocaine. NOTE: After informed consent - the patient in semi-fowlers position at bedside, the 2% Viscous Lidocaine - 1 ml jelly inserted into each nostril / nasal airway for topical anesthetic. A total of 2 ml used. The Flexible Fiberoptic Laryngoscope was easily passed through the Nasal airway and directed to the Hypopharynx were the Larynx was inspected and observed with breathing and swallowing of the patient. FINDINGS: Glottic Airway is patent - vocal cords are CLEAR. NO airway compromise - but still has thickening of epiglottis - mostly on the Lingual Surface. Arytenoids are within normal size and NOT compromising the airway. Aryepiglottic Folds are THIN and SMOOTH. MUCOSA is PINK - NOT Erythematous. RE SOLVING past exudates. COMPLICATIONS: NONE CONDITION: Patient tolerated the procedure well and remained under ICU care. Coding
[2021-12-12] MEDS ORDERED: VANCOMYCIN CONSULT ACTIVE PRN (15:16)
[2021-12-12] MEDS: CLINDAMYCIN 600 MG in DEXTROSE 5% 50 ML IV SCH (18:32)
--- NOTE | 2021-12-12 19:27 | Hospitalist Progress Note ---
Date of Service December 12, 2021 Assessment & Plan (1) Acute epiglottitis: (2) Cellulitis of neck: (3) Abscess of neck: Plan: Cellulitis of the neck with presence of abscess as well as narrowing airway from swelling as a result of acute epiglottitis. Pt was recently on a short course of oral prednisone and abx as above with no improvement. After starting on IV abx and decadron, she improved and continues to do well - IV decadron course completed per ENT/Pulm. - S/p IV vanc/ceftriaxone ->IV clindamycin today - discussed with ENT and pharmacy. - Seen by ENT today with bedside laryngoscopy- recommended iv clindamycin 600 q8hr, repeat CT neck in am to compare, and make npo overnight in case she will need drainage tomorrow depending on the CT findings (4) Leukocytosis: Plan: Improving, 2/2 infection vs steroid use recently. Clinically improved on current therapy. Cont to monitor. (5) Chronic obstructive pulmonary disease: Plan: chronic, not in exacerbation. (6) DVT prophylaxis: Plan: Lovenox Full Code Plan: Dispo- Repeat CT neck in am. NPO after midnight for possible procedure in am. Continue IV ABx. Admission and Anticipated Discharge Date Admission Date: December 08, 2021 Subjective She was feeling better but complained of some throat irritation and tingling after eating today. Seen by ENT and had bedside laryngoscopy. Denies any shortness of breath, hoarseness, fever, chills, dyspnea, dsyphagia. Physical Exam Physical Exam: General: Lying comfortably in bed, not in distress, on NC HEENT: EOMI, PARTHA, MMM Chest: Clear breath sounds bilaterally, no wheezes or crackles CVS: Regular rate and rhythm, normal heart sounds, no murmur Abdomen: Soft, non tender, not distended, normal bowel sounds Neuro: Awake, alert, oriented, conversing well, non focal Extremities: No cyanosis, clubbing or edema Results & Data Results & Data ([facility]) Vital Signs (Past 12 Hours) Vital Signs Temp Pulse Pulse Resp BP BP Pulse Ox 12/12/21 19:04 102 H 12/12/21 18:19 36.3 C L 91 H 17 146/83 H 96 12/12/21 17:02 36.5 C 18 143/69 H 97 12/12/21 16:00 65 12/12/21 12:00 36.6 C 16 98 12/12/21 08:00 67 Laboratory Results Short CBC 12/12/21 Range/Units 04:33 WBC 12.53 H (4.8-10.8) K/uL Hgb 10.5 L (12.0-16.0) g/dL Hct 33.3 L (37-47) % Plt Count 289 (130-400) K/uL [facility] 12/12/21 04:33 Sodium 139 Potassium 3.7 Chloride 101 Carbon Dioxide 34 H BUN 15 Creatinine 0.66 Glucose 101 H Calcium 8.6 Medications Administered Current Inpatient Medications Acetaminophen (Acetaminophen 325 Mg Tab) 650 mg PO Q6H PRN PRN Reason: Fever/pain Stop: 01/08/22 00:45 Last Admin: 12/10/21 10:10 Dose: 650 mg Documented by: Enoxaparin Sodium (Enoxaparin Inj 40 Mg/0.4 Ml Syr) 40 mg SQ QAM [facility] Stop: 01/08/22 08:59 Last Admin: 12/12/21 07:52 Dose: 40 mg Documented by: Famotidine (Famotidine 40 Mg Tablet) 40 mg PO BID [facility] Stop: 01/08/22 08:59 Last Admin: 12/12/21 07:52 Dose: 40 mg Documented by: Promethazine HCl 12.5 mg/ (Sodium Chloride) 50.5 mls @ 202 mls/hr IV Q6H PRN PRN Reason: Nausea And Vomiting Stop: 01/08/22 00:45 Clindamycin Phosphate 600 mg/ (Dextrose) 54 mls @ 108 mls/hr IV Q8H [facility]; Protocol Stop: 12/22/21 17:59 Last Infusion: 12/12/21 19:04 Dose: Infused Documented by: Multivitamins (Multivitamin Tab) 1 tab PO DAILY [facility] Stop: 01/08/22 08:59 Last Admin: 12/12/21 07:52 Dose: 1 tab Documented by: Umeclidinium/Vilanterol (Umeclidinium/Vilanterol 62.5/25mcg 7 Puffs/Inhaler) 1 puffs INH DAILY [facility] Stop: 01/08/22 08:59 Last Admin: 12/12/21 07:53 Dose: 1 puffs Documented by: (1) Acute epiglottitis Airway obstruction: without obstruction Qualified Code(s): J05.10 - Acute epiglottitis without obstruction
[2021-12-12] MEDS: ACETAMINOPHEN 325 MG TAB PO PRN (19:52)
[2021-12-13] MEDS: CLINDAMYCIN 600 MG in DEXTROSE 5% 50 ML IV SCH ×3 (01:33→17:35)
[2021-12-13] MEDS ORDERED: OPTIRAY 320 100ml IV ONE (06:01)
--- NOTE | 2021-12-13 07:28 | CT Scan Report ---
CT SCAN OF THE NECK WITH IV CONTRAST CLINICAL HISTORY: Neck swelling. COMPARISON STUDY: CT neck 12/08/2021. TECHNIQUE: Following the IV administration of 93 cc of Optiray 320, CT scan of the soft tissues of th e neck was performed from the skull base to the upper chest. Images are reviewed in the axial, sagitt al, and coronal planes. IV contrast was administered without complication. A dose lowering techniqu e was utilized adhering to the principles of ALARA. CT DOSE: 1083.54 mGy.cm FINDINGS: Pharynx: The epiglottis appears thickened and edematous. There is marked mucosal thickening and edema with mucosal hyperemia seen throughout the pharyngeal and laryngeal soft tissues. No peritonsillar a bscess is identified. There is extensive infiltration seen throughout the parapharyngeal fat bilatera lly, as well as infiltration of the retropharyngeal fat. Extensive infiltration is within the deep so ft tissues in the anterior neck extending from the level of the hyoid to the thoracic inlet. There is a multiloculated fluid collection seen anteriorly to the thyroid cartilage which primarily involves the anterior strap muscles. This extends from the hyoid bone to the level of the thyroid gland and li dickson involves a portion of the left thyroid lobe. The collection measures approximately 6.2 x 4.1 x 2 .6 cm. There is infiltration of the subcutaneous fat within the anterior neck and the left sternoclav icular region. There is also mild narrowing of the laryngeal airway. Overall, the size of this collec tion has increased in the interval. Lymphadenopathy: There are numerous mildly enlarged bilateral cervical chain lymph nodes which measur e up to 1.6 cm in length. Thyroid: Mildly enlarged and heterogeneous. Salivary glands: The parotid glands are within normal limits. The submandibular glands appear mildly enlarged and heterogeneous with surrounding infiltration. Brain parenchyma: The visualized brain parenchyma at the skull base is normal in appearance. Vascular structures: The carotid arteries and jugular veins are patent bilaterally. Skeletal structures: Imaged portions of the calvarium at the skull base are within normal limits. The cervical spine appears intact noting multilevel spondylosis. No lytic or blastic lesion is seen. Sinuses and mastoids: The visualized paranasal sinuses are clear. The mastoid air cells are well pneu matized. Lung apices: Visualized apical lung parenchyma is clear. IMPRESSION: 1. Slight increase in size in the 6.2 x 4.1 x 2.6 cm multiloculated fluid collection seen within the deep soft tissues of the anterior neck extending from the level of the hyoid to the thyroid gland. Th is primarily involves the anterior strap muscles. The majority of this collection is superficial to t he thyroid cartilage and likely represents an abscess. A small component of the abscess is deep to th e hyoid bone and extends into the vallecula. No midline masses considered less likely but not entirel y excluded. 2. There is overlying cellulitis of the anterior neck. This is centered at the level of the larynx an d causes at least mild narrowing of the laryngeal airway. 3. 4. The epiglottis is markedly thickened and edematous indicating epiglottitis. 5. There is infiltration of the parapharyngeal fat and retropharyngeal fat. 6. Edema within the submandibular glands and the thyroid gland is likely reactive. 7. Numerous mildly enlarged cervical lymph nodes are likely reactive. 8. Additional findings as above. Electronically signed by: Roscoe Whitley M.D. 12/13/2021 7:26 AM
[2021-12-13] MEDS: ENOXAPARIN INJ 40 MG/0.4 ML SYR SQ SCH (08:00)
[2021-12-13] MEDS: UMECLIDINIUM/VILANTEROL 62.5/25MCG 7 PUFFS/INHALER INH SCH (08:01)
[2021-12-13] MEDS: MULTIVITAMIN TAB PO SCH (09:18)
[2021-12-13] MEDS: FAMOTIDINE 40 MG TABLET PO SCH ×2 (09:19→22:38)
[2021-12-13 10:34] LABS: Hematocrit (blood only) 35.9 % (37-47); Hemoglobin 11.4 g/dL (12.0-16.0); Mean Corpuscular Hemoglobin 30.7 pg (25-34); Mean Corpuscular Hgb Conc 31.8 g/dL (32-36); Mean Corpuscular Volume 96.8 fL (80-100); Mean Platelet Volume 8.7 fL (7.4-10.4); Platelet Count 296 K/uL (130-400); RDW Coefficient of Variation 14.9 % (11.5-14.5); RDW Standard Deviation 52.5 fL (36.4-46.3); Red Blood Count 3.71 M/uL (4.2-5.4); White Blood Count 16.21 K/uL (4.8-10.8)
[2021-12-13 11:26] LABS: ALC (manual) 2.38 K/uL (1.2-3.4); ANC (manual) 12.85 K/uL (1.4-6.5); Lymphocytes # (manual) 2.38 K/uL (1.2-3.4); Lymphocytes % (manual) 14.7 %; Monocytes # (manual) 0.55 K/uL (0.11-0.59); Monocytes % (manual) 3.4 %; Myelocytes # (manual) 0.42 K/uL (0-0); Myelocytes % (manual) 2.6 %; Neutrophils # (manual) 12.85 K/uL (1.4-6.5); Neutrophils % (manual) 79.3 %; RBC Morphology Unremarkable
[2021-12-13 11:27] LABS: BUN Creatinine Ratio 13.6 (10-20); Calcium 8.5 mg/dl (8.5-10.1); Creatinine Clr Calc Pharmacy 127.4 ml/min; Est GFR (African American) 116.1 ml/min; Est GFR (Non-African American) 100.1 ml/min; Potassium 3.6 mmol/L (3.5-5.1)
--- NOTE | 2021-12-13 14:23 | Hospitalist Progress Note ---
Date of Service December 13, 2021 Assessment & Plan (1) Acute epiglottitis: (2) Cellulitis of neck: (3) Abscess of neck: Plan: Cellulitis of the neck with presence of abscess as well as narrowing airway from swelling as a result of acute epiglottitis. Pt was recently on a short course of oral prednisone and abx as above with no improvement. After starting on IV abx and decadron, she improved, now again seems to be slightly worsening. IV decadron course completed per ENT/Pulm. - S/p IV vanc/ceftriaxone ->IV clindamycin 12/12 but with worsening symptoms and imaging, will add back ceftriaxone and iv decadron. Awaiting further ENT input- possible I and D- will keep npo. - S/p bedside laryngoscopy 12/12 - CT neck 12/03 1. Slight increase in size in the 6.2 x 4.1 x 2.6 cm multiloculated fluid collection seen within the deep soft tissues of the anterior neck extending from the level of the hyoid to the thyroid gland. This primarily involves the anterior strap muscles. The majority of this collection is superficial to the thyroid cartilage and likely represents an abscess. A small component of the abscess is deep to the hyoid bone and extends into the vallecula. No midline masses considered less likely but not entirely excluded. 2. There is overlying cellulitis of the anterior neck. This is centered at the level of the larynx and causes at least mild narrowing of the laryngeal airway. 3. The epiglottis is markedly thickened and edematous indicating epiglottitis. 4. There is infiltration of the parapharyngeal fat and retropharyngeal fat. 5. Edema within the submandibular glands and the thyroid gland is likely reactive. 6. Numerous mildly enlarged cervical lymph nodes are likely reactive. (4) Leukocytosis: Plan: Worse today. will monitor. (5) Chronic obstructive pulmonary disease: Plan: chronic, not in exacerbation. (6) DVT prophylaxis: Plan: Lovenox Full Code Plan: Dispo- Inpatient managment. Worsening abscess, will likely need I and D. Continue IV ABx. Admission and Anticipated Discharge Date Admission Date: December 08, 2021 Subjective States her symptoms are slightly worse. She has neck pain radiating to her neck. She also has throat discomfort as well as some voice change. States symptoms worse when lying down. Denies any dyspnea. She had CT done this morning which showed slightly increased abscess. She is npo pending ENT evaluation for possible I and D. I tigertexted ENT- awaiting call back. Physical Exam Physical Exam: General: Sitting comfortably in chair, not in distress, on room air HEENT: EOMI, PARTHA, MMM Chest: Clear breath sounds bilaterally, no wheezes or crackles CVS: Regular rate and rhythm, normal heart sounds, no murmur Abdomen: Soft, non tender, not distended, normal bowel sounds Neuro: Awake, alert, oriented, conversing well, non focal Extremities: No cyanosis, clubbing or edema Results & Data Results & Data ([facility]) Vital Signs (Past 12 Hours) Vital Signs Temp Pulse Pulse Resp BP Pulse Ox 12/13/21 11:21 37.0 C 86 16 149/88 H 93 12/13/21 07:41 37.1 C 79 20 147/72 H 95 12/13/21 06:16 62 12/13/21 04:03 37.1 C 80 18 116/72 95 Laboratory Results Short CBC 12/13/21 Range/Units 10:12 WBC 16.21 H (4.8-10.8) K/uL Hgb 11.4 L (12.0-16.0) g/dL Hct 35.9 L (37-47) % Plt Count 296 (130-400) K/uL BMP 12/13/21 10:12 Sodium 137 Potassium 3.6 Chloride 97 L Carbon Dioxide 33 H BUN 9 Creatinine 0.66 Glucose 99 Calcium 8.5 Diagnostic Findings Soft Tissue Neck CT 12/13/21 06:00 CT SCAN OF THE NECK WITH IV CONTRAST CLINICAL HISTORY: Neck swelling. COMPARISON STUDY: CT neck 12/08/2021. TECHNIQUE: Following the IV administration of 93 cc of Optiray 320, CT scan of the soft tissues of the neck was performed from the skull base to the upper chest. Images are reviewed in the axial, sagittal, and coronal planes. IV contrast was administered without complication. A dose lowering technique was utilized adhering to the principles of ALARA. CT DOSE: 1083.54 mGy.cm FINDINGS: Pharynx: The epiglottis appears thickened and edematous. There is marked mucosal thickening and edema with mucosal hyperemia seen throughout the pharyngeal and laryngeal soft tissues. No peritonsillar abscess is identified. There is extensive infiltration seen throughout the parapharyngeal fat bilaterally, as well as infiltration of the retropharyngeal fat. Extensive infiltration is within the deep soft tissues in the anterior neck extending from the level of the hyoid to the thoracic inlet. There is a multiloculated fluid collection seen anteriorly to the thyroid cartilage which primarily involves the anterior strap muscles. This extends from the hyoid bone to the level of the thyroid gland and likely involves a portion of the left thyroid lobe. The collection measures approximately 6.2 x 4.1 x 2.6 cm. There is infiltration of the subcutaneous fat within the anterior neck and the left sternoclavicular region. There is also mild narrowing of the laryngeal airway. Overall, the size of this collection has increased in the interval. Lymphadenopathy: There are numerous mildly enlarged bilateral cervical chain lymph nodes which measure up to 1.6 cm in length. Thyroid: Mildly enlarged and heterogeneous. Salivary glands: The parotid glands are within normal limits. The submandibular glands appear mildly enlarged and heterogeneous with surrounding infiltration. Brain parenchyma: The visualized brain parenchyma at the skull base is normal in appearance. Vascular structures: The carotid arteries and jugular veins are patent bilaterally. Skeletal structures: Imaged portions of the calvarium at the skull base are within normal limits. The cervical spine appears intact noting multilevel spondylosis. No lytic or blastic lesion is seen. Sinuses and mastoids: The visualized paranasal sinuses are clear. The mastoid air cells are well pneumatized. Lung apices: Visualized apical lung parenchyma is clear. IMPRESSION: 1. Slight increase in size in the 6.2 x 4.1 x 2.6 cm multiloculated fluid collection seen within the deep soft tissues of the anterior neck extending from the level of the hyoid to the thyroid gland. This primarily involves the anterior strap muscles. The majority of this collection is superficial to the thyroid cartilage and likely represents an abscess. A small component of the abscess is deep to the hyoid bone and extends into the vallecula. No midline masses considered less likely but not entirely excluded. 2. There is overlying cellulitis of the anterior neck. This is centered at the level of the larynx and causes at least mild narrowing of the laryngeal airway. 3. 4. The epiglottis is markedly thickened and edematous indicating epiglottitis. 5. There is infiltration of the parapharyngeal fat and retropharyngeal fat. 6. Edema within the submandibular glands and the thyroid gland is likely reactive. 7. Numerous mildly enlarged cervical lymph nodes are likely reactive. 8. Additional findings as above. Electronically signed by: Roscoe Whitley M.D. 12/13/2021 7:26 AM Medications Administered Current Inpatient Medications Acetaminophen (Acetaminophen 325 Mg Tab) 650 mg PO Q6H PRN PRN Reason: Fever/pain Stop: 01/08/22 00:45 Last Admin: 12/12/21 19:52 Dose: 650 mg Documented by: Enoxaparin Sodium (Enoxaparin Inj 40 Mg/0.4 Ml Syr) 40 mg SQ QAM MAYDA Stop: 01/08/22 08:59 Last Admin: 12/13/21 08:00 Dose: 40 mg Documented by: Famotidine (Famotidine 40 Mg Tablet) 40 mg PO BID MAYDA Stop: 01/08/22 08:59 Last Admin: 12/13/21 09:19 Dose: 40 mg Documented by: Promethazine HCl 12.5 mg/ (Sodium Chloride) 50.5 mls @ 202 mls/hr IV Q6H PRN PRN Reason: Nausea And Vomiting Stop: 01/08/22 00:45 Clindamycin Phosphate 600 mg/ (Dextrose) 54 mls @ 108 mls/hr IV Q8H MAYDA; Protocol Stop: 12/22/21 17:59 Last Infusion: 12/13/21 10:47 Dose: Infused Documented by: Ceftriaxone Sodium 2,000 mg/ (Dextrose) 70 mls @ 100 mls/hr IV DAILY MAYDA; Pro tocol Stop: 12/20/21 14:14 Multivitamins (Multivitamin Tab) 1 tab PO DAILY MAYDA Stop: 01/08/22 08:59 Last Admin: 12/13/21 09:18 Dose: 1 tab Documented by: Umeclidinium/Vilanterol (Umeclidinium/Vilanterol 62.5/25mcg 7 Puffs/Inhaler) 1 puffs INH DAILY MAYDA Stop: 01/08/22 08:59 Last Admin: 12/13/21 08:01 Dose: 1 puffs Documented by: (1) Acute epiglottitis Airway obstruction: without obstruction Qualified Code(s): J05.10 - Acute epiglottitis without obstruction
[2021-12-13] MEDS ORDERED: cefTRIAXone SODIUM 2,000 MG in DEXTROSE 5% 50 ML IV SCH (14:30)
--- NOTE | 2021-12-13 18:23 | Ears,Nose,Throat Progress Note ---
Date of Service December 13, 2021 Assessment & Plan (1) Abscess of neck: Plan: Patient had some improvement on IV antibiotics but now increasing in size when comparing the two neck ct scan. Will need to proceed with Incision and Drainage of Neck Abscess. Procedure, Risks, Alternatives of treatments discussed. Consent obtained. To surgery today. Present on Admission?: Yes Admission and Anticipated Discharge Date Admission Date: December 08, 2021 Subjective States her symptoms are slightly worse. She has neck pain radiating to her neck. She also has throat discomfort as well as some voice change. States symptoms worse when lying down. Denies any dyspnea. She had CT done this morning which showed slightly increased abscess. She is NPO. Will discuss need for Incision & Drainage of the Deep Neck Abscess and obtain consent. Physical Exam Physical Exam: Alert and Oriented. breathing well - NO stridor. Swallowing her own secretions still. But Patient is Anxious. Constitutional: WD/WN, vitals as above Eyes: PERRL, conjunctivae normal, anicteric sclerae ENMT: Ears: no TM abnormality Nose: no external nose abnormality, no turbinate abnormality and no nasal discharge Mouth: no oropharynx abnormality, no oral mucosal abnormality, no tongue abnormality and no muffled voice Throat: uvula midline and + tonsils absent; no uvular edema Neck: normal visual inspection; no tracheal deviation Thickened Larynx to palpation - secondary to Deep Neck Abscess. Results & Data ([facility]) Vital Signs (Past 12 Hours) Vital Signs Temp Pulse Pulse Resp BP Pulse Ox 12/13/21 14:20 107 H 12/13/21 11:21 37.0 C 86 16 149/88 H 93 12/13/21 07:41 37.1 C 79 20 147/72 H 95 Laboratory Results WBC = 16.2 Diagnostic Findings Repeat NECK CT Today shows increase in size of Deep Neck Abscess.
[2021-12-13] MEDS ORDERED: LIDOCAINE 2% 2 ML VIAL/AMP(20MG/ML) INFIL ONE (19:20)
[2021-12-13] MEDS ORDERED: ONDANSETRON INJ 2 MG/ML 2 ML VIAL ONE (19:20)
[2021-12-13] MEDS ORDERED: MIDAZOLAM HCL 1 MG/ML 2ML VIAL ONE (19:20)
[2021-12-13] MEDS ORDERED: PROPOFOL IV EMULSION 10 MG/ML 20 ML VIAL IV ONE (19:20)
[2021-12-13] MEDS ORDERED: fentaNYL citrate 100 MCG/2 ML VIAL ONE (19:20)
[2021-12-13] MEDS ORDERED: SUCCINYLCHOLINE CHLORIDE 20 MG/ML 10 ML VIAL IV ONE (19:25)
[2021-12-13] MEDS ORDERED: ceFAZolin 330 MG/ML 1 GM VIAL ONE (19:33)
--- NOTE | 2021-12-13 19:50 | Anesthesiology Consultation ---
Date of Service December 13, 2021 Assessment & Plan (1) Encounter for pre-operative examination: Chart Review Chart Review: Acceptable Risk for Surgery Consults Requested none ASA [id number] Proposed Anesthesia Anesthesia Type: General Risk / Benefits Reviewed With: PT / POA / Parent / Guardian, Accepts Plan and Informed Consent Obtained History Surgery Operation Date: 12/13/21 19:45 Proposed Procedures p Incision and Drainage of Deep Neck Abscess, Anterior Neck Exploration, Poss. Tracheostomy(Not Applicable) - Nelson Goldsmith MD Height/Weight Height: 5 ft 3 in Weight: 128.5 kg Allergies Allergy/AdvReac Type Severity Reaction Status Date / Time Penicillins Allergy Intermediate RASH Verified 12/08/21 21:49 Medications Home Medications Medication Instructions Recorded Confirmed Last Taken famotidine 40 mg tablet 40 mg PO BID 09/07/20 12/08/21 12/04/21 ibuprofen 600 mg tablet 600 mg PO DIRECTED PRN 09/07/20 12/08/21 Unknown umeclidinium 62.5 mcg-vilanterol 1 inh INHALATION DAILY PRN 09/07/20 12/08/21 10/28/20 25 mcg/actuation powdr for inhalation (Anoro Ellipta) albuterol sulfate 90 mcg/actuation 2 inh INHALATION Q6H PRN #8.5 g 12/05/21 12/08/21 Unknown aerosol inhaler doxycycline hyclate 100 mg capsule 100 mg PO BID 7 Days #14 cap 12/05/21 12/08/21 Unknown prednisone 20 mg tablet 60 mg PO DAILY 4 Days #12 tab 12/05/21 12/08/21 Unknown acetaminophen 500 mg tablet 1,000 mg PO Q6H PRN 12/08/21 12/08/21 Unknown (Tylenol Extra Strength) multivitamin 1 tab PO DAILY 12/08/21 12/08/21 Unknown sulindac 150 mg tablet 150 mg PO BID 12/08/21 12/08/21 Unknown Active Medications Generic Name Dose Route Start Last Admin Trade Name Freq PRN Reason Stop Dose Admin Acetaminophen 650 mg 12/09/21 00:46 12/12/21 19:52 Acetaminophen 325 Mg Tab PO 01/08/22 00:45 650 mg Q6H PRN Administration Fever/pain Enoxaparin Sodium 40 mg 12/09/21 09:00 12/13/21 08:00 Enoxaparin Inj 40 Mg/0.4 Ml Syr SQ 01/08/22 08:59 40 mg QAM MAYDA Administration Famotidine 40 mg 12/09/21 09:00 12/13/21 09:19 Famotidine 40 Mg Tablet PO 01/08/22 08:59 40 mg BID MAYDA Administration Clindamycin Phosphate 600 mg/ 54 mls @ 108 mls/hr 12/12/21 18:00 12/13/21 18:15 Dextrose IV 12/22/21 17:59 Infused Q8H MAYDA Infusion Protocol Ceftriaxone Sodium 2,000 mg/ 70 mls @ 100 mls/hr 12/13/21 14:30 12/13/21 17:39 Dextrose IV 12/20/21 14:29 Infused DAILY MAYDA Infusion Protocol Multivitamins 1 tab 12/09/21 09:00 12/13/21 09:18 Multivitamin Tab PO 01/08/22 08:59 1 tab DAILY MAYDA Administration Umeclidinium/Vilanterol 1 puffs 12/09/21 09:00 12/13/21 08:01 Umeclidinium/Vilanterol 62.5/25mcg 7 Puffs/Inhaler INH 01/08/22 08:59 1 puffs DAILY MAYDA Administration NPO Date Last Intake of Fluids: 12/13/21 Time Last Intake of Fluids: 00:00 Date Last Intake of Solids: 12/13/21 Time Last Intake of Solids: 00:00 Past Medical History Medical History Carpal tunnel syndrome bilat Chronic obstructive pulmonary disease rare res inh use DVT (deep venous thrombosis) 10 yrs ago from prolonged standing > right leg > thinners > no longer on GERD (gastroesophageal reflux disease) Hypertension pt denies > no meds Osteoarthritis Sleep apnea cpap Exercise / Class Metabolic Activity II 4-5 Yardwork/Stairs/Walk up hill Past Family History Family History Mother Diabetes Past Surgical History Surgical History History of adenoidectomy History of ankle surgery left History of repair of rotator cuff left x2 History of tonsillectomy History of tooth extraction wisdom teeth Past Anesthesia History No Hx of Anesthesia Complications and No Family Hx of Anesthesia Complications History of PONV No Hx of PONV and No Hx of Motion Sickness Social History Smoking Status: Former smoker tobacco type: cigarettes Do You Dip or Chew Tobacco: No Hx Alcohol Use: No Hx Substance Use: No substance use type: does not use Physical Exam Vital Signs Last Vital Signs Temp 98.6 F 12/13/21 11:21 Pulse 107 H 12/13/21 14:20 Resp 16 12/13/21 11:21 BP 149/88 H 12/13/21 11:21 Pulse Ox 93 12/13/21 11:21 Constitutional + morbidly obese ENMT Mouth: no dentition abnormality Thyromental Distance: > or= 3.5 Finger Breadths Mallampati Class: III Neck normal visual inspection Respiratory normal respiratory effort Auscultation: lungs clear to auscultation bilaterally Cardiovascular Rate/Rhythm: regular rate and regular rhythm Testing Laboratory Results 12/13/21 10:12 12/13/21 10:12 Hemoglobin A1c 5.6 % (4.5-5.6) 12/08/21 16:38 12/08/21 20:17 Aerobic Blood Culture - Preliminary Blood No growth in Aerobic bottle after 48 hours. Anaerobic Blood Culture - Preliminary No growth in Anaerobic bottle after 48 hours. 12/08/21 20:15 Aerobic Blood Culture - Preliminary Blood No growth in Aerobic bottle after 48 hours. Anaerobic Blood Culture - Preliminary No growth in Anaerobic bottle after 48 hours. Chest X-Ray Date: 12/08/21 Findings: + NAD Other Testing CT neck 12/13/21 IMPRESSION: 1. Slight increase in size in the 6.2 x 4.1 x 2.6 cm multiloculated fluid collection seen within the deep soft tissues of the anterior neck extending from the level of the hyoid to the thyroid gland. This primarily involves the anterior strap muscles. The majority of this collection is superficial to the thyroid cartilage and likely represents an abscess. A small component of the abscess is deep to the hyoid bone and extends into the vallecula. No midline masses considered less likely but not entirely excluded. 2. There is overlying cellulitis of the anterior neck. This is centered at the level of the larynx and causes at least mild narrowing of the laryngeal airway. 3. 4. The epiglottis is markedly thickened and edematous indicating epiglottitis. 5. There is infiltration of the parapharyngeal fat and retropharyngeal fat. 6. Edema within the submandibular glands and the thyroid gland is likely reactive. 7. Numerous mildly enlarged cervical lymph nodes are likely reactive. 8. Additional findings as above.
[2021-12-13] MEDS ORDERED: ATROPINE SULFATE 0.1 MG/ML 10ML SYR IV PRN (19:52)
[2021-12-13] MEDS ORDERED: ePHEDrine sulfate 50 MG/ML AMP IV PRN (19:52)
[2021-12-13] MEDS ORDERED: ONDANSETRON INJ 2 MG/ML 2 ML VIAL IV PRN (19:52)
[2021-12-13] MEDS ORDERED: fentaNYL citrate 100 MCG/2 ML VIAL IV PRN (19:52)
[2021-12-13 20:16] LABS: Pregnancy Test, Urine Negative (Negative)
[2021-12-13] MEDS ORDERED: LIDOCAINE 1%/EPINEPHRINE 1:100,000 50 ML VIAL ONE (20:41)
[2021-12-13] MEDS ORDERED: DEXAMETHASONE SOD INJ 4 MG/ML VIAL ONE (21:06)
--- NOTE | 2021-12-13 21:27 | Post Operative Brief Note ---
Immediate Post Op Note v1 Date of Surgery December 13, 2021 Pre & Post Diagnosis Operation Date: 12/13/21 19:45 Pre-Op Diagnosis: Abscess of neck Post-Op Diagnosis: Abscess of neck; base of tongue abscess I identified the patient and participated in the time-out.: Yes Procedure Operation Date: 12/13/21 19:45 Actual Procedures p Incision and Drainage of Deep Neck Abscess, Anterior Neck Exploration, Direct Laryngoscopy(Not Applicable) - Nelson Goldsmith MD Surgeon Nelson Goldsmith MD [employer] None. Estimated Blood Loss 25 Findings Consistent with Post-Op Diagnosis Anterior Neck Deep Abscess around the strap muscles at the midline deep to the Laryngeal cartilage and extending superiorly over the hyoid into the LEFT Base of Tongue. Fluids 250 ml Lactated Ringers Solution Specimens Aerobic / Anaerobic Culture with Gram Stain Fungal and Acid-Fast Bacillus Culture Drains Khanh Drain (1/2 " Khanh Drain. One arm superior in the anterior neck. Second arm inferior in the anterior neck.) Complications None. Disposition Accompanied Patient To Recovery: Yes Overlapping Procedure I was present for: the critical portions of procedure. (I performed all aspects of the surgery. )
[2021-12-13] MEDS ORDERED: ALBUTEROL HFA 8 GM INHALER INH PRN (21:55)
--- NOTE | 2021-12-13 22:09 | Anesthesiology Progress Note ---
Date of Service December 13, 2021 Anesthesia Post Procedure Vital Signs Vital Signs: Temp Pulse Pulse Pulse Resp BP BP 12/13/21 21:55 87 20 170/84 H 12/13/21 21:45 99 H 23 167/89 H 12/13/21 21:35 97.3 F L 82 16 169/80 H 169/80 H 12/13/21 14:20 107 H 12/13/21 11:21 98.6 F 86 16 149/88 H 12/13/21 07:41 98.8 F 79 20 147/72 H 12/13/21 06:16 62 12/13/21 04:03 98.8 F 80 18 116/72 12/12/21 23:34 98.8 F 87 18 138/68 12/12/21 23:00 85 Pulse Ox 12/13/21 21:55 100 12/13/21 21:45 99 12/13/21 21:35 98 12/13/21 14:20 12/13/21 11:21 93 12/13/21 07:41 95 12/13/21 06:16 12/13/21 04:03 95 12/12/21 23:34 96 12/12/21 23:00 Pain Intensity Anterior Neck: Pain Intensity: 1 Transfer of Care Handoff Completed per policy Notes Mental Status: alert / awake / arousable and participated in evaluation Patient Amnestic to Procedure: Yes Nausea / Vomiting: adequately controlled Pain: adequately controlled Airway Patency, RR, SpO2: stable & adequate BP & HR: stable & adequate Hydration State: stable & adequate Anesthetic Complications: no major complications apparent and Pt Satisfied with anesthetic care
[2021-12-13] MEDS: ACETAMINOPHEN 325 MG TAB PO PRN (22:37)
[2021-12-13] MEDS: dexAMETHasone 10 MG in SYRINGE 0 ML IV SCH (22:39)
[2021-12-14] MEDS: CLINDAMYCIN 600 MG in DEXTROSE 5% 50 ML IV SCH ×3 (01:18→17:48)
[2021-12-14] MEDS: dexAMETHasone 10 MG in SYRINGE 0 ML IV SCH ×3 (05:03→21:12)
[2021-12-14] MEDS: UMECLIDINIUM/VILANTEROL 62.5/25MCG 7 PUFFS/INHALER INH SCH (08:21)
[2021-12-14] MEDS: FAMOTIDINE 40 MG TABLET PO SCH ×2 (08:22→21:12)
[2021-12-14] MEDS: ENOXAPARIN INJ 40 MG/0.4 ML SYR SQ SCH (08:22)
[2021-12-14] MEDS: MULTIVITAMIN TAB PO SCH (08:22)
--- NOTE | 2021-12-14 12:03 | Hospitalist Progress Note ---
Date of Service December 14, 2021 Assessment & Plan (1) Acute epiglottitis: (2) Cellulitis of neck: (3) Abscess of neck: Plan: Cellulitis of the neck with presence of abscess as well as narrowing airway from swelling as a result of acute epiglottitis. Pt was recently on a short course of oral prednisone and abx as above with no improvement. After starting on IV abx and decadron, she improved, now again seems to be slightly worsening. IV decadron course completed per ENT/Pulm. - S/p IV vanc/ceftriaxone ->IV clindamycin 12/12 but with worsening symptoms and imaging, added back ceftriaxone and iv decadron. Will likely cut down steroids with improvement in symptoms. - S/p Incision and Drainage of Deep Neck Abscess, Anterior Neck Exploration, Direct Laryngoscopy by Dr Goldsmith 12/13/21 - Await clx results for antibiotic tailoring. Wound management per ENT CT neck 12/08 1. There is a severe inflammatory process of the pharynx and larynx as above with overlying cellulitis of the anterior neck. This is centered at the level of the larynx and causes at least mild narrowing of the laryngeal airway. This is likely on an infectious basis. 2. No peritonsillar abscess is identified. 3. There is a crescentic fluid collection seen within the deep soft tissues of the anterior neck extending from the level of the hyoid to the thyroid gland. This is superficial to the thyroid cartilage and likely represents an abscess. 4. The epiglottis is markedly thickened and edematous indicating epiglottitis. 5. There is infiltration of the parapharyngeal fat and retropharyngeal fat. 6. Edema within the submandibular glands and the thyroid gland is likely reactive. 7. Numerous mildly enlarged cervical lymph nodes are likely reactive. Bedside laryngoscopy 12/12 FINDINGS: Glottic Airway is patent - vocal cords are CLEAR. NO airway compromise - but still has thickening of epiglottis - mostly on the Lingual Surface. Arytenoids are within normal size and NOT compromising the airway. Aryepiglottic Folds are THIN and SMOOTH. MUCOSA is PINK - NOT Erythematous. RESOLVING past exudates.. - CT neck 12/13 1. Slight increase in size in the 6.2 x 4.1 x 2.6 cm multiloculated fluid colle ction seen within the deep soft tissues of the anterior neck extending from the level of the hyoid to the thyroid gland. This primarily involves the anterior strap muscles. The majority of this collection is superficial to the thyroid cartilage and likely represents an abscess. A small component of the abscess is deep to the hyoid bone and extends into the vallecula. No midline masses considered less likely but not entirely excluded. 2. There is overlying cellulitis of the anterior neck. This is centered at the level of the larynx and causes at least mild narrowing of the laryngeal airway. 3. The epiglottis is markedly thickened and edematous indicating epiglottitis. 4. There is infiltration of the parapharyngeal fat and retropharyngeal fat. 5. Edema within the submandibular glands and the thyroid gland is likely reactive. 6. Numerous mildly enlarged cervical lymph nodes are likely reactive. OR 12/13 p Incision and Drainage of Deep Neck Abscess, Anterior Neck Exploration, Direct Laryngoscopy(Not Applicable) - Nelson Goldsmith MD (4) Chronic obstructive pulmonary disease: Plan: chronic, not in exacerbation. (5) DVT prophylaxis: Plan: Lovenox Full Code Plan: Dispo- Inpatient managment. Worsening abscess, will likely need I and D. Continue IV ABx. Admission and Anticipated Discharge Date Admission Date: December 08, 2021 Subjective She feels much better after the I&D yesterday. Pain is much improved. Tolerated clears well. Voice is improved. Denies any dyspnea, fever, chills. Physical Exam Physical Exam: General: Sitting comfortably in chair, not in distress, on room air HEENT: EOMI, PARTHA, MMM. Neck incision site covered with dressing Chest: Clear breath sounds bilaterally, no wheezes or crackles CVS: Regular rate and rhythm, normal heart sounds, no murmur Abdomen: Soft, non tender, not distended, normal bowel sounds Neuro: Awake, alert, oriented, conversing well, non focal Extremities: No cyanosis, clubbing or edema Results & Data Results & Data ([facility]) Vital Signs (Past 12 Hours) Vital Signs Temp Pulse Pulse Resp BP Pulse Ox 12/14/21 11:23 36.6 C 60 18 150/72 H 92 12/14/21 07:35 36.3 C L 55 L 18 128/73 97 12/14/21 06:10 56 L 12/14/21 03:39 36.3 C L 69 18 129/77 98 12/14/21 01:07 36.8 C 77 18 124/73 97 Medications Administered Current Inpatient Medications Acetaminophen (Acetaminophen 325 Mg Tab) 650 mg PO Q6H PRN PRN Reason: Fever/pain Stop: 01/08/22 00:45 Last Admin: 12/13/21 22:37 Dose: 650 mg Documented by: Albuterol (Albuterol Hfa 8 Gm Inhaler) 2 puffs INH Q6H PRN; Protocol PRN Reason: shortness of breath or wheezing Stop: 01/12/22 21:54 Enoxaparin Sodium (Enoxaparin Inj 40 Mg/0.4 Ml Syr) 40 mg SQ QAM MAYDA Stop: 01/08/22 08:59 Last Admin: 12/14/21 08:22 Dose: 40 mg Documented by: Famotidine (Famotidine 40 Mg Tablet) 40 mg PO BID MAYDA Stop: 01/08/22 08:59 Last Admin: 12/14/21 08:22 Dose: 40 mg Documented by: Clindamycin Phosphate 600 mg/ (Dextrose) 54 mls @ 108 mls/hr IV Q8H MAYDA; Protocol Stop: 12/22/21 17:59 Last Infusion: 12/14/21 10:57 Dose: Infused Documented by: Dexamethasone 10 mg/ Syringe 2.5 mls @ 1 mls/min IV Q8 MAYDA Stop: 12/15/21 21:59 Last Admin: 12/14/21 05:03 Dose: 1 mls/min Documented by: Multivitamins (Multivitamin Tab) 1 tab PO DAILY MAYDA Stop: 01/08/22 08:59 Last Admin: 12/14/21 08:22 Dose: 1 tab Documented by: Umeclidinium/Vilanterol (Umeclidinium/Vilanterol 62.5/25mcg 7 Puffs/Inhaler) 1 puffs INH DAILY [facility] Stop: 01/08/22 08:59 Last Admin: 12/14/21 08:21 Dose: 1 puffs Documented by: (1) Acute epiglottitis Airway obstruction: without obstruction Qualified Code(s): J05.10 - Acute epiglottitis without obstruction
[2021-12-14] MEDS: ACETAMINOPHEN 325 MG TAB PO PRN (17:56)
--- NOTE | 2021-12-14 21:29 | Ears,Nose,Throat Progress Note ---
Date of Service December 14, 2021 Assessment & Plan (1) Abscess of neck: Plan: Wound Care and Dressing Change completed. Khanh Drains ( x2 ) are not ready yet to be advanced - but working very well. Will keep [place] Drains in place and change Neck Wound Care again tomorrow. Continue IV Clindamycin ABSCESS CULTURE REsults still pending - "No Growth". Continue current hospital course Present on Admission?: Yes Admission and Anticipated Discharge Date Admission Date: December 08, 2021 Subjective Patient is 24 hours post Incision and Drainage of Anterior Deep Neck Abscess. Feeling much better. Sitting up in Chair. VOICE is Improved. Taking oral diet (CLEARS) presently. Pain is much improved. Denies any dyspnea, fever, chills. Physical Exam Physical Exam: Alert & Oriented. NO stridor. Clear Voice. Swallowing own secretions. Much less pain. Neck: No additional neck swelling. Trachea midline. Current Neck Dressing removed and replaced with CLEAN Dressing around the incision and [place] Drains. Drainage as expected. NO foul odor. NO cellulitis about the neck. Results & Data ([facility]) Vital Signs (Past 12 Hours) Vital Signs Temp Pulse Pulse Resp BP Pulse Ox 12/14/21 19:29 36.8 C 76 18 135/66 94 12/14/21 15:21 36.8 C 73 18 151/69 H 95 12/14/21 14:20 74 12/14/21 11:23 36.6 C 60 18 150/72 H 92
[2021-12-15] MEDS: CLINDAMYCIN 600 MG in DEXTROSE 5% 50 ML IV SCH ×3 (01:31→17:52)
[2021-12-15] MEDS: dexAMETHasone 10 MG in SYRINGE 0 ML IV SCH (05:58)
[2021-12-15 07:47] LABS: Hematocrit (blood only) 36.9 % (37-47); Mean Corpuscular Hemoglobin 31.2 pg (25-34); Mean Corpuscular Hgb Conc 32.5 g/dL (32-36); Mean Corpuscular Volume 95.8 fL (80-100); Mean Platelet Volume 8.9 fL (7.4-10.4); Platelet Count 317 K/uL (130-400); RDW Coefficient of Variation 14.7 % (11.5-14.5); Red Blood Count 3.85 M/uL (4.2-5.4); White Blood Count 21.12 K/uL (4.8-10.8)
[2021-12-15] MEDS: ENOXAPARIN INJ 40 MG/0.4 ML SYR SQ SCH (08:17)
[2021-12-15] MEDS: FAMOTIDINE 40 MG TABLET PO SCH ×2 (08:17→22:03)
[2021-12-15] MEDS: MULTIVITAMIN TAB PO SCH (08:17)
[2021-12-15 08:20] LABS: BUN Creatinine Ratio 21.1 (10-20); Calcium 9.1 mg/dl (8.5-10.1); Creatinine Clr Calc Pharmacy 147.5 ml/min; Est GFR (African American) 121.8 ml/min; Est GFR (Non-African American) 105.1 ml/min; Magnesium 2.3 mg/dl (1.7-2.4); Potassium 4.3 mmol/L (3.5-5.1)
[2021-12-15] MEDS: UMECLIDINIUM/VILANTEROL 62.5/25MCG 7 PUFFS/INHALER INH SCH (09:43)
--- NOTE | 2021-12-15 14:35 | Hospitalist Progress Note ---
Date of Service December 15, 2021 Assessment & Plan (1) Acute epiglottitis: (2) Cellulitis of neck: (3) Abscess of neck: Plan: Cellulitis of the neck with presence of abscess as well as narrowing airway from swelling as a result of acute epiglottitis. Pt was recently on a short course of oral prednisone and abx as above with no improvement. After starting on IV abx and decadron, she improved, now again seems to be slightly worsening. IV decadron course completed per ENT/Pulm. - S/p IV vanc/ceftriaxone ->IV clindamycin since 12/12. Will dc decadron. - S/p Incision and Drainage of Deep Neck Abscess, Anterior Neck Exploration, Direct Laryngoscopy by Dr Goldsmith 12/13/21 - Await clx results for antibiotic tailoring. Wound management per ENT CT neck 12/08 1. There is a severe inflammatory process of the pharynx and larynx as above with overlying cellulitis of the anterior neck. This is centered at the level of the larynx and causes at least mild narrowing of the laryngeal airway. This is likely on an infectious basis. 2. No peritonsillar abscess is identified. 3. There is a crescentic fluid collection seen within the deep soft tissues of the anterior neck extending from the level of the hyoid to the thyroid gland. This is superficial to the thyroid cartilage and likely represents an abscess. 4. The epiglottis is markedly thickened and edematous indicating epiglottitis. 5. There is infiltration of the parapharyngeal fat and retropharyngeal fat. 6. Edema within the submandibular glands and the thyroid gland is likely reactive. 7. Numerous mildly enlarged cervical lymph nodes are likely reactive. Bedside laryngoscopy 12/12 FINDINGS: Glottic Airway is patent - vocal cords are CLEAR. NO airway compromise - but still has thickening of epiglottis - mostly on the Lingual Surface. Arytenoids are within normal size and NOT compromising the airway. Aryepiglottic Folds are THIN and SMOOTH. MUCOSA is PINK - NOT Erythematous. RESOLVING past exudates.. - CT neck 12/13 1. Slight increase in size in the 6.2 x 4.1 x 2.6 cm multiloculated fluid collection seen within the deep soft tissues of the anterior neck extending from the level of the hyoid to the thyroid gland. This primarily involves the anterior strap muscles. The majority of this collection is superficial to the thyroid cartilage and likely represents an abscess. A small component of the abscess is deep to the hyoid bone and extends into the vallecula. No midline masses considered less likely but not entirely excluded. 2. There is overlying cellulitis of the anterior neck. This is centered at the level of the larynx and causes at least mild narrowing of the laryngeal airway. 3. The epiglottis is markedly thickened and edematous indicating epiglottitis. 4. There is infiltration of the parapharyngeal fat and retropharyngeal fat. 5. Edema within the submandibular glands and the thyroid gland is likely reactive. 6. Numerous mildly enlarged cervical lymph nodes are likely reactive. OR 12/13 p Incision and Drainage of Deep Neck Abscess, Anterior Neck Exploration, Direct Laryngoscopy(Not Applicable) - Nelson Goldsmith MD (4) Chronic obstructive pulmonary disease: Plan: chronic, not in exacerbation. (5) DVT prophylaxis: Plan: Lovenox Full Code Plan: Continue inpatient management. ENT managing her incision wound/abscess. Await final clx results. Continue IV ABx. Admission and Anticipated Discharge Date Admission Date: December 08, 2021 Subjective No new issues. She continues to feel better. Tolerating po well. Had few loose BM. No fever, chills, chest pain, shortness of breath. Physical Exam Physical Exam: General: Sitting comfortably in chair, not in distress, on room air HEENT: EOMI, PARTHA, MMM. Neck incision site covered with dressing Chest: Clear breath sounds bilaterally, no wheezes or crackles CVS: Regular rate and rhythm, normal heart sounds, no murmur Abdomen: Soft, non tender, not distended, normal bowel sounds Neuro: Awake, alert, oriented, conversing well, non focal Extremities: No cyanosis, clubbing or edema Results & Data Results & Data ([facility]) Vital Signs (Past 12 Hours) Vital Signs Temp Pulse Pulse Resp BP BP Pulse Ox 12/15/21 14:18 36.8 C 73 20 135/70 95 12/15/21 10:50 36.3 C L 69 16 153/95 H 95 12/15/21 07:30 71 12/15/21 07:00 36.8 C 62 20 136/74 94 12/15/21 03:58 36.5 C 76 18 144/77 H 95 Laboratory Results Short CBC 12/15/21 Range/Units 07:13 WBC 21.12 H (4.8-10.8) K/uL Hgb 12.0 (12.0-16.0) g/dL Hct 36.9 L (37-47) % Plt Count 317 (130-400) K/uL BMP 12/15/21 07:13 Sodium 138 Potassium 4.3 Chloride 100 Carbon Dioxide 32 BUN 12 Creatinine 0.57 L Glucose 138 H Calcium 9.1 Medications Administered Current Inpatient Medications Acetaminophen (Acetaminophen 325 Mg Tab) 650 mg PO Q6H PRN PRN Reason: Fever/pain Stop: 01/08/22 00:45 Last Admin: 12/14/21 17:56 Dose: 650 mg Documented by: Albuterol (Albuterol Hfa 8 Gm Inhaler) 2 puffs INH Q6H PRN; Protocol PRN Reason: shortness of breath or wheezing Stop: 01/12/22 21:54 Enoxaparin Sodium (Enoxaparin Inj 40 Mg/0.4 Ml Syr) 40 mg SQ QAM MAYDA Stop: 01/08/22 08:59 Last Admin: 12/15/21 08:17 Dose: 40 mg Documented by: Famotidine (Famotidine 40 Mg Tablet) 40 mg PO BID MAYDA Stop: 01/08/22 08:59 Last Admin: 12/15/21 08:17 Dose: 40 mg Documented by: Clindamycin Phosphate 600 mg/ (Dextrose) 54 mls @ 108 mls/hr IV Q8H MAYDA; Protocol Stop: 12/22/21 17:59 Last Infusion: 12/15/21 10:41 Dose: Infused Documented by: Multivitamins (Multivitamin Tab) 1 tab PO DAILY MAYDA Stop: 01/08/22 08:59 Last Admin: 12/15/21 08:17 Dose: 1 tab Documented by: Umeclidinium/Vilanterol (Umeclidinium/Vilanterol 62.5/25mcg 7 Puffs/Inhaler) 1 puffs INH DAILY MAYDA Stop: 01/08/22 08:59 Last Admin: 12/15/21 09:43 Dose: 1 puffs Documented by: (1) Acute epiglottitis Airway obstruction: without obstruction Qualified Code(s): J05.10 - Acute epiglottitis without obstruction
--- NOTE | 2021-12-15 21:45 | Ears,Nose,Throat Progress Note ---
Date of Service December 15, 2021 Assessment & Plan (1) Abscess of neck: Plan: Wound Care and Dressing Change completed. Khanh Drains ( x2 ) are not ready yet to be advanced - but working very well. Will keep [place] Drains in place and change Neck Wound Care again tomorrow. Continue IV Clindamycin ABSCESS CULTURE Results still pending - "Micro Growth" identified. TEsting continues. Continue current hospital course Admission and Anticipated Discharge Date Admission Date: December 08, 2021 Subjective Alert & Oriented. AFEBRILE. She continues to feel better. Tolerating PO and Swallowing is BEtter. VOICE is normal. NO airway issues No fever, chills, chest pain, shortness of breath. Physical Exam Constitutional: WD/WN, vitals as above Neck: Neck dressing changed. Drainage is LESS and also LESS Cloudy. NO rodriguez rrounding cellulitis. Anterior neck getting more supple. Trachea Midline still. NO air leaks, NO crepitus. Respiratory: normal respiratory effort, lungs clear to auscultation able to speak in complete sentences; no labored breathing and no stridor Results & Data ([facility]) Vital Signs (Past 12 Hours) Vital Signs Temp Pulse Pulse Resp BP Pulse Ox 12/15/21 18:20 36.6 C 83 20 155/71 H 96 12/15/21 15:44 74 12/15/21 14:18 36.8 C 73 20 135/70 95 12/15/21 10:50 36.3 C L 69 16 153/95 H 95 Laboratory Results WBC INCREASED from 16.2 --> 21.1 today. Steroid effect (?) CLinically looking better. Medications Administered IV CLINDAMYCIN.
[2021-12-16] MEDS: CLINDAMYCIN 600 MG in DEXTROSE 5% 50 ML IV SCH ×3 (01:35→18:09)
[2021-12-16] MEDS: FAMOTIDINE 40 MG TABLET PO SCH ×2 (09:30→20:21)
[2021-12-16] MEDS: UMECLIDINIUM/VILANTEROL 62.5/25MCG 7 PUFFS/INHALER INH SCH (09:30)
[2021-12-16] MEDS: MULTIVITAMIN TAB PO SCH (09:30)
[2021-12-16] MEDS: ENOXAPARIN INJ 40 MG/0.4 ML SYR SQ SCH (09:31)
[2021-12-16 10:54] LABS: Hemoglobin 11.2 g/dL (12.0-16.0); Mean Platelet Volume 8.6 fL (7.4-10.4); Platelet Count 294 K/uL (130-400); Red Blood Count 3.61 M/uL (4.2-5.4); White Blood Count 11.81 K/uL (4.8-10.8)
--- NOTE | 2021-12-16 11:03 | Operative Report (OR) ---
DATE OF OPERATION: 12/13/2021 PREOPERATIVE DIAGNOSIS: Deep abscess of the anterior neck. 2. Epiglottitis POSTOPERATIVE DIAGNOSES: 1. Anterior deep neck abscess. 2. Left base of tongue abscess. 3. Epiglottitis PROCEDURE: 1. Exploration of the anterior neck. 2. Incision and drainage of deep neck abscess. 3. Direct laryngoscopy. SURGEON: Nelson Goldsmith MD, FACS. VIRTUAL REALITY SPECIALIST: None. ANESTHESIA TYPE: General anesthesia with orotracheal intubation. ANESTHESIA STAFF: Ivan Suh DO. supervising anesthesiologist. DESCRIPTION OF OPERATION: With the patient brought to the operating room, the patient identification, correct site and surgical safety timeout. Checklist was completed with entire operating team with all in agreement. The patient was transferred to the operating table in the supine position. General anesthesia was then induced after safe and successful orotracheal intubation. The patient remained in supine position and preparation for the anterior neck exploration was then begun with a ChloraPrep solution, followed by sterile draping. A 4 mL of 1% lidocaine with 1:100,000 epinephrine solution was infiltrated into the anterior neck skin along its anterior skin crease where the planned incision was to be placed. Using a #15 blade, a horizontal incision was placed approximately 3.5 cm in length in a skin crease of the anterior neck overlying the Larynx anatomy. The dissection continued through the subcutaneous plane down to the anterior strap muscles. The anterior strap muscles of the neck were inflamed, but there was no evidence of abscess superficial to these muscles - but the abscess lay inferior to the muscle bed, and by dissecting between them with electrocautery dissection at the midline raphe to separate the right and left sternohyoid and sternothyroid muscles the abscess cavity was entered.. The abscess cavity was then encountered and found to extend around the thyroid cartilage and over the pretracheal fascia, penetrating from the notch of the thyroid cartilage down to the isthmus of the thyroid gland itself. The abscess cavity extended laterally right and left as well. A total of 150 mL of purulence was drained. Cultures were taken directly from the abscess cavity and sent for acid fast, and fungal cultures as well as aerobic, and anaerobic cultures with Gram stain. Copious irrigation, a total of 800 mL was used to irrigate the abscess cavity and a Natacha clamp and then used with the blunt tip to probe the abscess cavity to make sure that all loculations were released of this abscess cavity, while irrigating with the Ancef saline irrigation solution. Once the irrigation of 800 mL was completed and it was noted to be clear of gross purulence. A Half inch Khanh drain was then used, by dividing it in 2 so that the 2 arms of the drain could be in the abscess cavity - , one directed superiorly in the anterior neck and one inferiorly in the anterior neck and suturing this to the skin with a 3-0 nylon suture to maintain the drains in the abscess cavity to allow this to drain through the open incision. Once the Khanh drain was sutured in place, fluff dressings were placed around the Khanh drain and at the anterior neck, followed by a Kerlix neck wrap to collect the secretions. Once this neck wrap was completed, sterile draping was then removed and then a direct laryngoscopy was performed. Placing a dental guard in place, the Dedo laryngoscope was then inserted into the oral cavity directed to the oropharynx, identified via endotracheal tube, following to the epiglottis, which improved from its swelling just from the drainage of this large deep anterior neck mass. Inspection of the vallecula noted drainage, now encountered from the left base of tongue into vallecula and is consistent with the same secretions from the abscess cavity and this was confirmatory as to being another source of infection on CT scan. With this left base of tongue abscess drained and the anterior deep neck abscess drained, the patient was then able to be reverse the anesthesia. ESTIMATED BLOOD LOSS: 25 mL. FLUID INFUSED: 250 mL of lactated Ringer's solution. FINDINGS: An anterior deep neck abscess around the bellies of the strap muscles at the midline and extending deep to the laryngeal cartilage from the thyroid cartilage notch over the pretracheal fascia down to the thyroid isthmus and laterally right and left around the thyroid cartilage. It extended superiorly up to the hyoid bone and then into the left base of tongue. COMPLICATIONS: None. PACKS: None. DRAINS: A 1/2 inch [place] drain was placed, one arm superior into the anterior neck abscess cavity and the second arm inferior into the anterior neck cavity. SPECIMENS: Aerobic and anaerobic cultures were sent for Gram stain and a second fungal and acid fast bacillus culture all taken from the deep neck abscess cavity. CONDITION: The patient tolerated the procedure well without complication. She was reversed from general anesthetic, extubated in the operating room and transferred to the gurney and then taken to the postanesthesia care unit in stable condition. Job ID: [id number] [id number]
[2021-12-16 11:14] LABS: BUN Creatinine Ratio 27.9 (10-20); Calcium 8.7 mg/dl (8.5-10.1); Est GFR (African American) 119.1 ml/min; Est GFR (Non-African American) 102.8 ml/min; Potassium 3.8 mmol/L (3.5-5.1)
[2021-12-16 11:29] LABS: ALC (manual) 2.69 K/uL (1.2-3.4); ANC (manual) 8.29 K/uL (1.4-6.5); Lymphocytes # (manual) 2.69 K/uL (1.2-3.4); Lymphocytes % (manual) 22.8 %; Monocytes # (manual) 0.83 K/uL (0.11-0.59); Neutrophils # (manual) 8.29 K/uL (1.4-6.5); Neutrophils % (manual) 70.2 %
--- NOTE | 2021-12-16 12:59 | Hospitalist Progress Note ---
Date of Service December 16, 2021 Assessment & Plan (1) Acute epiglottitis: (2) Cellulitis of neck: (3) Abscess of neck: Plan: Cellulitis of the neck with presence of abscess as well as narrowing airway from swelling as a result of acute epiglottitis. Pt was recently on a short course of oral prednisone and abx as above with no improvement. After starting on IV abx and decadron, she improved, now again seems to be slightly worsening. IV decadron course completed per ENT/Pulm. - S/p IV vanc/ceftriaxone ->IV clindamycin since 12/12. S/p decadron. - S/p Incision and Drainage of Deep Neck Abscess, Anterior Neck Exploration, Direct Laryngoscopy by Dr Goldsmith 12/13/21 - Await final clx results for antibiotic tailoring- currently showing strep and probable anerobic GNB. Wound management per ENT CT neck 12/08 1. There is a severe inflammatory process of the pharynx and larynx as above with overlying cellulitis of the anterior neck. This is centered at the level of the larynx and causes at least mild narrowing of the laryngeal airway. This is likely on an infectious basis. 2. No peritonsillar abscess is identified. 3. There is a crescentic fluid collection seen within the deep soft tissues of the anterior neck extending from the level of the hyoid to the thyroid gland. This is superficial to the thyroid cartilage and likely represents an abscess. 4. The epiglottis is markedly thickened and edematous indicating epiglottitis. 5. There is infiltration of the parapharyngeal fat and retropharyngeal fat. 6. Edema within the submandibular glands and the thyroid gland is likely reactive. 7. Numerous mildly enlarged cervical lymph nodes are likely reactive. Bedside laryngoscopy 12/12 FINDINGS: Glottic Airway is patent - vocal cords are CLEAR. NO airway compromise - but still has thickening of epiglottis - mostly on the Lingual Surface. Arytenoids are within normal size and NOT compromising the airway. Aryepiglottic Folds are THIN and SMOOTH. MUCOSA is PINK - NOT Erythematous. RESOLVING past exudates.. - CT neck 12/13 1. Slight increase in size in the 6.2 x 4.1 x 2.6 cm multiloculated fluid collection seen within the deep soft tissues of the anterior neck extending from the level of the hyoid to the thyroid gland. This primarily involves the anterior strap muscles. The majority of this collection is superficial to the thyroid cartilage and likely represents an abscess. A small component of the abscess is deep to the hyoid bone and extends into the vallecula. No midline masses considered less likely but not entirely excluded. 2. There is overlying cellulitis of the anterior neck. This is centered at the level of the larynx and causes at least mild narrowing of the laryngeal airway. 3. The epiglottis is markedly thickened and edematous indicating epiglottitis. 4. There is infiltration of the parapharyngeal fat and retropharyngeal fat. 5. Edema within the submandibular glands and the thyroid gland is likely reactive. 6. Numerous mildly enlarged cervical lymph nodes are likely reactive. OR 12/13 p Incision and Drainage of Deep Neck Abscess, Anterior Neck Exploration, Direct Laryngoscopy(Not Applicable) - Nelson Goldsmith MD (4) Chronic obstructive pulmonary disease: Plan: chronic, not in exacerbation. (5) DVT prophylaxis: Plan: Lovenox Full Code Plan: Continue inpatient management. ENT managing her incision wound/abscess. Await final clx results. Continue IV ABx. Admission and Anticipated Discharge Date Admission Date: December 08, 2021 Subjective No new issues. Continues to feel better. Pain improved. No fever, chills, chest pain, shortness of breath. Physical Exam Physical Exam: General: Sitting comfortably in bed, not in distress, on room air HEENT: EOMI, PARTHA, MMM. Neck incision site covered with dressing Chest: Clear breath sounds bilaterally, no wheezes or crackles CVS: Regular rate and rhythm, normal heart sounds, no murmur Abdomen: Soft, non tender, not distended, normal bowel sounds Neuro: Awake, alert, oriented, conversing well, non focal Extremities: No cyanosis, clubbing or edema Results & Data Results & Data ([facility]) Vital Signs (Past 12 Hours) Vital Signs Temp Pulse Pulse Resp BP Pulse Ox 12/16/21 11:46 54 L 12/16/21 11:15 36.4 C L 67 18 118/73 97 12/16/21 07:40 36.3 C L 66 20 118/64 95 12/16/21 03:10 36.7 C 68 18 157/83 H 94 Laboratory Results Short CBC 12/16/21 Range/Units 10:15 WBC 11.81 H (4.8-10.8) K/uL Hgb 11.2 L (12.0-16.0) g/dL Hct 35.0 L (37-47) % Plt Count 294 (130-400) K/uL BMP 12/16/21 10:15 Sodium 137 Potassium 3.8 Chloride 100 Carbon Dioxide 31 BUN 17 Creatinine 0.61 Glucose 90 Calcium 8.7 Medications Administered Current Inpatient Medications Acetaminophen (Acetaminophen 325 Mg Tab) 650 mg PO Q6H PRN PRN Reason: Fever/pain Stop: 01/08/22 00:45 Last Admin: 12/14/21 17:56 Dose: 650 mg Documented by: Albuterol (Albuterol Hfa 8 Gm Inhaler) 2 puffs INH Q6H PRN; Protocol PRN Reason: shortness of breath or wheezing Stop: 01/12/22 21:54 Enoxaparin Sodium (Enoxaparin Inj 40 Mg/0.4 Ml Syr) 40 mg SQ QAM MAYDA Stop: 01/08/22 08:59 Last Admin: 12/16/21 09:31 Dose: 40 mg Documented by: Famotidine (Famotidine 40 Mg Tablet) 40 mg PO BID MAYDA Stop: 01/08/22 08:59 Last Admin: 12/16/21 09:30 Dose: 40 mg Documented by: Clindamycin Phosphate 600 mg/ (Dextrose) 54 mls @ 108 mls/hr IV Q8H MAYDA; Protocol Stop: 12/22/21 17:59 Last Infusion: 12/16/21 10:23 Dose: Infused Documented by: Multivitamins (Multivitamin Tab) 1 tab PO DAILY MAYDA Stop: 01/08/22 08:59 Last Admin: 12/16/21 09:30 Dose: 1 tab Documented by: Umeclidinium/Vilanterol (Umeclidinium/Vilanterol 62.5/25mcg 7 Puffs/Inhaler) 1 puffs INH DAILY MAYDA Stop: 01/08/22 08:59 Last Admin: 12/16/21 09:30 Dose: 1 puffs Documented by: (1) Acute epiglottitis Airway obstruction: without obstruction Qualified Code(s): J05.10 - Acute epiglottitis without obstruction
[2021-12-16] MEDS: ACETAMINOPHEN 325 MG TAB PO PRN (20:21)
--- NOTE | 2021-12-16 21:47 | Ears,Nose,Throat Progress Note ---
Date of Service December 16, 2021 Assessment & Plan (1) Abscess of neck: Plan: Wound Care and Dressing Change completed. UPPER [place] Drain REMOVED today. LOWER [place] not ready yet to be removed - but working very well. Will keep remaining [place] Drain in place and change Neck Wound Care again tomorrow. Continue IV Clindamycin ABSCESS CULTURE Results STREP Species. TEsting continues. Continue current hospital course Admission and Anticipated Discharge Date Admission Date: December 08, 2021 Subjective No new issues. OK Day - but had some RIGHT Otalgia and RIGHT Neck Pain. (?) - Was not incapacitating. Able to Eat & Swallow. No fever, chills, chest pain, shortness of breath. Physical Exam Physical Exam: Alert & Oriented. AFEBRILE. NO stridor. Clear Voice. Swallowing own secretions. NO RIGHT ear pain now - but was during the day. Results & Data ([facility]) Vital Signs (Past 12 Hours) Vital Signs Temp Pulse Pulse Resp BP Pulse Ox 12/16/21 20:05 36.7 C 75 18 123/73 95 12/16/21 16:43 67 12/16/21 15:44 36.5 C 67 20 114/71 97 12/16/21 11:46 54 L 12/16/21 11:15 36.4 C L 67 18 118/73 97 Laboratory Results WBC DROPPED from yesterday ( December 15) from 21.1 to 11.8 Today ( December 16). ABSCESS Culture STREP Species - further testing continuing. Medications Administered Still on IV CLINDA
[2021-12-17] MEDS: CLINDAMYCIN 600 MG in DEXTROSE 5% 50 ML IV SCH ×3 (01:31→18:08)
[2021-12-17 08:12] LABS: Hematocrit (blood only) 33.5 % (37-47); Hemoglobin 10.9 g/dL (12.0-16.0); Mean Corpuscular Hgb Conc 32.5 g/dL (32-36); Mean Corpuscular Volume 98.2 fL (80-100); Mean Platelet Volume 8.5 fL (7.4-10.4); Platelet Count 252 K/uL (130-400); RDW Standard Deviation 53.5 fL (36.4-46.3); Red Blood Count 3.41 M/uL (4.2-5.4)
[2021-12-17 08:32] LABS: Calcium 8.6 mg/dl (8.5-10.1); Creatinine Clr Calc Pharmacy 135.8 ml/min; Est GFR (African American) 118.5 ml/min; Est GFR (Non-African American) 102.2 ml/min; Potassium 4.1 mmol/L (3.5-5.1)
[2021-12-17 08:36] LABS: ALC (manual) 1.46 K/uL (1.2-3.4); ANC (manual) 5.26 K/uL (1.4-6.5); Lymphocytes # (manual) 1.46 K/uL (1.2-3.4); Metamyelocytes # (manual) 0.07 K/uL (0-0); Metamyelocytes % (manual) 0.9 %; Monocytes # (manual) 0.51 K/uL (0.11-0.59); Neutrophils # (manual) 5.26 K/uL (1.4-6.5); Neutrophils % (manual) 72.1 %; RBC Morphology Unremarkable
[2021-12-17] MEDS: UMECLIDINIUM/VILANTEROL 62.5/25MCG 7 PUFFS/INHALER INH SCH (09:38)
[2021-12-17] MEDS: FAMOTIDINE 40 MG TABLET PO SCH ×2 (09:43→22:08)
[2021-12-17] MEDS: ENOXAPARIN INJ 40 MG/0.4 ML SYR SQ SCH (09:43)
[2021-12-17] MEDS: MULTIVITAMIN TAB PO SCH (09:43)
--- NOTE | 2021-12-17 10:13 | Hospitalist Progress Note ---
Date of Service December 17, 2021 Assessment & Plan (1) Acute epiglottitis: (2) Cellulitis of neck: (3) Abscess of neck: Plan: Cellulitis of the neck with presence of abscess as well as narrowing airway from swelling as a result of acute epiglottitis. Pt was recently on a short course of oral prednisone and abx as above with no improvement. After starting on IV abx and decadron, she improved, now again seems to be slightly worsening. IV decadron course completed per ENT/Pulm. - S/p IV vanc/ceftriaxone ->IV clindamycin since 12/12. S/p decadron. - S/p Incision and Drainage of Deep Neck Abscess, Anterior Neck Exploration, Direct Laryngoscopy by Dr Goldsmith 12/13/21 - Await final clx results for antibiotic tailoring- currently showing strep and probable anerobic GNB. Wound management per ENT CT neck 12/08 1. There is a severe inflammatory process of the pharynx and larynx as above with overlying cellulitis of the anterior neck. This is centered at the level of the larynx and causes at least mild narrowing of the laryngeal airway. This is likely on an infectious basis. 2. No peritonsillar abscess is identified. 3. There is a crescentic fluid collection seen within the deep soft tissues of the anterior neck extending from the level of the hyoid to the thyroid gland. This is superficial to the thyroid cartilage and likely represents an abscess. 4. The epiglottis is markedly thickened and edematous indicating epiglottitis. 5. There is infiltration of the parapharyngeal fat and retropharyngeal fat. 6. Edema within the submandibular glands and the thyroid gland is likely reactive. 7. Numerous mildly enlarged cervical lymph nodes are likely reactive. Bedside laryngoscopy 12/12 FINDINGS: Glottic Airway is patent - vocal cords are CLEAR. NO airway compromise - but still has thickening of epiglottis - mostly on the Lingual Surface. Arytenoids are within normal size and NOT compromising the airway. Aryepiglottic Folds are THIN and SMOOTH. MUCOSA is PINK - NOT Erythematous. RESOLVING past exudates.. - CT neck 12/13 1. Slight increase in size in the 6.2 x 4.1 x 2.6 cm multiloculated fluid collection seen within the deep soft tissues of the anterior neck extending from the level of the hyoid to the thyroid gland. This primarily involves the anterior strap muscles. The majority of this collection is superficial to the thyroid cartilage and likely represents an abscess. A small component of the abscess is deep to the hyoid bone and extends into the vallecula. No midline masses considered less likely but not entirely excluded. 2. There is overlying cellulitis of the anterior neck. This is centered at the level of the larynx and causes at least mild narrowing of the laryngeal airway. 3. The epiglottis is markedly thickened and edematous indicating epiglottitis. 4. There is infiltration of the parapharyngeal fat and retropharyngeal fat. 5. Edema within the submandibular glands and the thyroid gland is likely reactive. 6. Numerous mildly enlarged cervical lymph nodes are likely reactive. OR 12/13 p Incision and Drainage of Deep Neck Abscess, Anterior Neck Exploration, Direct Laryngoscopy(Not Applicable) - Nelson Goldsmith MD (4) Chronic obstructive pulmonary disease: Plan: chronic, not in exacerbation. (5) DVT prophylaxis: Plan: Lovenox Full Code Plan: Continue inpatient management. ENT managing her incision wound/abscess and would want her to stay here until Monday per patient. Await final clx results. Continue IV ABx. Admission and Anticipated Discharge Date Admission Date: December 08, 2021 Subjective Feels better. She is tired of liquid diet and would like to try solid. States one of the drain is out and the other needs to stay in. She also told me ENT wants her to be here until Monday for management of her drain and wound. No dysphagia, dysphonia, dyspnea. Pain controlled. States she has some leg swelling- recommended to keep the legs up as seems dependent. Physical Exam Physical Exam: General: Sitting comfortably in bed, not in distress, on room air HEENT: EOMI, PARTHA, MMM. Neck incision site covered with dressing Chest: Clear breath sounds bilaterally, no wheezes or crackles CVS: Regular rate and rhythm, normal heart sounds, no murmur Abdomen: Soft, non tender, not distended, normal bowel sounds Neuro: Awake, alert, oriented, conversing well, non focal Extremities: No cyanosis, clubbing, trace edema Results & Data Results & Data ([facility]) Vital Signs (Past 12 Hours) Vital Signs Temp Pulse Pulse Resp BP BP Pulse Ox 12/17/21 08:06 36.7 C 63 18 124/60 94 12/17/21 07:53 67 12/17/21 02:35 36.6 C 68 18 111/77 95 12/16/21 22:45 36.8 C 64 18 109/61 97 12/16/21 22:17 63 Laboratory Results Short CBC 12/16/21 12/17/21 Range/Units 10:15 07:15 WBC 11.81 H 7.30 (4.8-10.8) K/uL Hgb 11.2 L 10.9 L (12.0-16.0) g/dL Hct 35.0 L 33.5 L (37-47) % Plt Count 294 252 (130-400) K/uL BMP 12/16/21 12/17/21 10:15 07:15 Sodium 137 137 Potassium 3.8 4.1 Chloride 100 101 Carbon Dioxide 31 32 BUN 17 13 Creatinine 0.61 0.62 Glucose 90 83 Calcium 8.7 8.6 Medications Administered Current Inpatient Medications Acetaminophen (Acetaminophen 325 Mg Tab) 650 mg PO Q6H PRN PRN Reason: Fever/pain Stop: 01/08/22 00:45 Last Admin: 12/16/21 20:21 Dose: 650 mg Documented by: Albuterol (Albuterol Hfa 8 Gm Inhaler) 2 puffs INH Q6H PRN; Protocol PRN Reason: shortness of breath or wheezing Stop: 01/12/22 21:54 Enoxaparin Sodium (Enoxaparin Inj 40 Mg/0.4 Ml Syr) 40 mg SQ QAM [facility] Stop: 01/08/22 08:59 Last Admin: 12/17/21 09:43 Dose: 40 mg Documented by: Famotidine (Famotidine 40 Mg Tablet) 40 mg PO BID [facility] Stop: 01/08/22 08:59 Last Admin: 12/17/21 09:43 Dose: 40 mg Documented by: Clindamycin Phosphate 600 mg/ (Dextrose) 54 mls @ 108 mls/hr IV Q8H [facility]; Protocol Stop: 12/22/21 17:59 Last Infusion: 12/17/21 10:28 Dose: Infused Documented by: Multivitamins (Multivitamin Tab) 1 tab PO DAILY [facility] Stop: 01/08/22 08:59 Last Admin: 12/17/21 09:43 Dose: 1 tab Documented by: Umeclidinium/Vilanterol (Umeclidinium/Vilanterol 62.5/25mcg 7 Puffs/Inhaler) 1 puffs INH DAILY MAYDA Stop: 01/08/22 08:59 Last Admin: 12/17/21 09:38 Dose: 1 puffs Documented by: (1) Acute epiglottitis Airway obstruction: without obstruction Qualified Code(s): J05.10 - Acute epiglottitis without obstruction
--- NOTE | 2021-12-17 13:21 | Ears,Nose,Throat Progress Note ---
Date of Service December 17, 2021 Assessment & Plan (1) Abscess of neck: Plan: Wound Care and Dressing Change completed. UPPER [place] Drain REMOVED yesterday. LOWER [place] not ready yet to be removed - but working very well. Remaining [place] Drain should be able to remove tomorrow. Then patient could train on self Neck Wound Care starting tomorrow after drain is removed. Continue IV Clindamycin ABSCESS CULTURE - STREP Species. Continue current hospital course - Possible Discharge on Monday or Monday after drain is out and patient can do Self Wound Care. Present on Admission?: Yes Admission and Anticipated Discharge Date Admission Date: December 08, 2021 Subjective Doing Well. Took Solid Diet today for Lunch. Sitting in chair. No dysphagia, dysphonia, dyspnea. Pain controlled. Physical Exam Physical Exam: Alert & Oriented. AFEBRILE. NO stridor. Clear Voice. Swallowing own secretions. NO RIGHT ear pain now. Neck: Dressing changed. Wound with Mostly sero-sanguinous drainage - more PINK - NOT bright red. NO discoloration. Respiratory: normal respiratory effort, lungs clear to auscultation able to speak in complete sentences; no labored breathing and no stridor Results & Data ([facility]) Vital Signs (Past 12 Hours) Vital Signs Temp Pulse Pulse Resp BP BP Pulse Ox 12/17/21 11:14 36.8 C 68 18 139/61 95 12/17/21 08:06 36.7 C 63 18 124/60 94 12/17/21 07:53 67 12/17/21 02:35 36.6 C 68 18 111/77 95 Laboratory Results WBC finally in NORMAL Range. (7.3) Hgb/Hct Stable.
[2021-12-18] MEDS: CLINDAMYCIN 600 MG in DEXTROSE 5% 50 ML IV SCH ×3 (02:06→17:22)
[2021-12-18] MEDS: FAMOTIDINE 40 MG TABLET PO SCH ×2 (08:46→21:15)
[2021-12-18] MEDS: UMECLIDINIUM/VILANTEROL 62.5/25MCG 7 PUFFS/INHALER INH SCH (10:36)
[2021-12-18] MEDS: ADVANCED PROBIOTIC 1250 MG CAPSULE PO SCH (10:36)
[2021-12-18] MEDS: MULTIVITAMIN TAB PO SCH (10:36)
[2021-12-18] MEDS: ENOXAPARIN INJ 40 MG/0.4 ML SYR SQ SCH (11:22)
--- NOTE | 2021-12-18 17:22 | Hospitalist Progress Note ---
Date of Service December 18, 2021 Assessment & Plan (1) Acute epiglottitis: (2) Cellulitis of neck: (3) Abscess of neck: Plan: Per Dr. De Leon's note w/ addendum: Cellulitis of the neck with presence of abscess as well as narrowing airway from swelling as a result of acute epiglottitis. Pt was recently on a short course of oral prednisone and abx with no improvement. After starting on IV abx and decadron, she improved, now again seems to be slightly worsening. IV decadron course completed per ENT/Pulm. - S/p IV vanc/ceftriaxone ->IV clindamycin since 12/12. S/p decadron. - S/p Incision and Drainage of Deep Neck Abscess, Anterior Neck Exploration, Direct Laryngoscopy by Dr Goldsmith 12/13/21 - Await final clx results for antibiotic tailoring- currently showing strep and probable anerobic GNB. Wound management per ENT CT neck 12/08 1. There is a severe inflammatory process of the pharynx and larynx as above with overlying cellulitis of the anterior neck. This is centered at the level of the larynx and causes at least mild narrowing of the laryngeal airway. This is likely on an infectious basis. 2. No peritonsillar abscess is identified. 3. There is a crescentic fluid collection seen within the deep soft tissues of the anterior neck extending from the level of the hyoid to the thyroid gland. This is superficial to the thyroid cartilage and likely represents an abscess. 4. The epiglottis is markedly thickened and edematous indicating epiglottitis. 5. There is infiltration of the parapharyngeal fat and retropharyngeal fat. 6. Edema within the submandibular glands and the thyroid gland is likely reactive. 7. Numerous mildly enlarged cervical lymph nodes are likely reactive. Bedside laryngoscopy 12/12 FINDINGS: Glottic Airway is patent - vocal cords are CLEAR. NO airway compromise - but still has thickening of epiglottis - mostly on the Lingual Surface. Arytenoids are within normal size and NOT compromising the airway. Aryepiglottic Folds are THIN and SMOOTH. MUCOSA is PINK - NOT Erythematous. RESOLVING past exudates.. - CT neck 12/13 1. Slight increase in size in the 6.2 x 4.1 x 2.6 cm multiloculated fluid collection seen within the deep soft tissues of the anterior neck extending from the level of the hyoid to the thyroid gland. This primarily involves the anterior strap muscles. The majority of this collection is superficial to the thyroid cartilage and likely represents an abscess. A small component of the abscess is deep to the hyoid bone and extends into the vallecula. No midline masses considered less likely but not entirely excluded. 2. There is overlying cellulitis of the anterior neck. This is centered at the level of the larynx and causes at least mild narrowing of the laryngeal airway. 3. The epiglottis is markedly thickened and edematous indicating epiglottitis. 4. There is infiltration of the parapharyngeal fat and retropharyngeal fat. 5. Edema within the submandibular glands and the thyroid gland is likely reactive. 6. Numerous mildly enlarged cervical lymph nodes are likely reactive. OR 12/13 p Incision and Drainage of Deep Neck Abscess, Anterior Neck Exploration, Direct Laryngoscopy(Not Applicable) - Nelson Goldsmith MD 12/18: Pt afebrile, WBC trending down. Remaining juliana drain removed by myself, RN communicated to teach dressing to the patient. Pt w/ no dysphonia, dysphagia or dyspnea. Will continue w/ iv clinda, on PO upon DC. Monitor for 1-2 more days. (4) Chronic obstructive pulmonary disease: Plan: chronic, not in exacerbation. (5) DVT prophylaxis: Plan: Lovenox Full Code Plan: Continue inpatient management. Await final cx results. likely dc in next 1-2 days. Admission and Anticipated Discharge Date Admission Date: December 08, 2021 Subjective Patient seen and examined at bedside as a follow-up of acute epiglottitis, cellulitis of neck and abscess of neck. Patient was sitting up in chair, on room air, neck dressing in situ, NAD, no new acute events overnight. No dysphagia or dysphonia or dyspnea per patient. Denies headache/dizziness/chest pain/palpitation/other review of symptoms. Physical Exam Physical Exam: GENERAL: Alert and oriented x3. NAD, on RA. HEENT: No pallor, no icterus. Pupils equal, round and reactive to light. Oral mucosa moist. Neck incision site covered with dressing, some soakage noted. NECK: No JVD, no neck masses. HEART: S1 and S2 heard. Regular rate and rhythm. No murmur, no gallop. RESPIRATORY SYSTEM: Normal AP diameter. No accessory muscle use. No wheezing, no crackles. ABDOMEN: Soft, bowel sounds present, nontender, no distention. CENTRAL NERVOUS SYSTEM: No facial droop. Speech is clear. Obeys simple commands. Moves extremities. EXTREMITIES: No edema, no erythema seen. Results & Data Results & Data ([facility]) Vital Signs (Past 12 Hours) Vital Signs Temp Pulse Pulse Resp BP Pulse Ox 12/18/21 15:32 36.4 C L 87 20 154/85 H 96 12/18/21 14:24 85 12/18/21 11:34 36.4 C L 85 20 131/76 94 12/18/21 06:49 36.6 C 77 18 134/75 94 12/18/21 06:23 63 (1) Acute epiglottitis Airway obstruction: without obstruction Qualified Code(s): J05.10 - Acute epiglottitis without obstruction
[2021-12-19] MEDS: CLINDAMYCIN 600 MG in DEXTROSE 5% 50 ML IV SCH ×3 (03:11→17:36)
[2021-12-19 07:18] LABS: Hematocrit (blood only) 36.9 % (37-47); Hemoglobin 11.7 g/dL (12.0-16.0); Mean Corpuscular Hemoglobin 30.8 pg (25-34); Mean Corpuscular Hgb Conc 31.7 g/dL (32-36); Mean Corpuscular Volume 97.1 fL (80-100); Mean Platelet Volume 8.6 fL (7.4-10.4); Platelet Count 284 K/uL (130-400); RDW Coefficient of Variation 14.7 % (11.5-14.5); RDW Standard Deviation 52.1 fL (36.4-46.3); White Blood Count 6.53 K/uL (4.8-10.8)
[2021-12-19] MEDS: UMECLIDINIUM/VILANTEROL 62.5/25MCG 7 PUFFS/INHALER INH SCH (09:41)
[2021-12-19] MEDS: FAMOTIDINE 40 MG TABLET PO SCH ×2 (09:41→20:45)
[2021-12-19] MEDS: MULTIVITAMIN TAB PO SCH (09:42)
[2021-12-19] MEDS: ADVANCED PROBIOTIC 1250 MG CAPSULE PO SCH (09:42)
[2021-12-19] MEDS: ENOXAPARIN INJ 40 MG/0.4 ML SYR SQ SCH (09:42)
--- NOTE | 2021-12-19 15:15 | Hospitalist Progress Note ---
Date of Service December 19, 2021 Assessment & Plan (1) Acute epiglottitis: (2) Cellulitis of neck: (3) Abscess of neck: Plan: Per Dr. De Leon's note w/ addendum: Cellulitis of the neck with presence of abscess as well as narrowing airway from swelling as a result of acute epiglottitis. Pt was recently on a short course of oral prednisone and abx with no improvement. After starting on IV abx and decadron, she improved, now again seems to be slightly worsening. IV decadron course completed per ENT/Pulm. - S/p IV vanc/ceftriaxone ->IV clindamycin since 12/12. S/p decadron. - S/p Incision and Drainage of Deep Neck Abscess, Anterior Neck Exploration, Direct Laryngoscopy by Dr Goldsmith 12/13/21 - Await final clx results for antibiotic tailoring- currently showing strep and probable anerobic GNB. Wound management per ENT CT neck 12/08 1. There is a severe inflammatory process of the pharynx and larynx as above with overlying cellulitis of the anterior neck. This is centered at the level of the larynx and causes at least mild narrowing of the laryngeal airway. This is likely on an infectious basis. 2. No peritonsillar abscess is identified. 3. There is a crescentic fluid collection seen within the deep soft tissues of the anterior neck extending from the level of the hyoid to the thyroid gland. This is superficial to the thyroid cartilage and likely represents an abscess. 4. The epiglottis is markedly thickened and edematous indicating epiglottitis. 5. There is infiltration of the parapharyngeal fat and retropharyngeal fat. 6. Edema within the submandibular glands and the thyroid gland is likely reactive. 7. Numerous mildly enlarged cervical lymph nodes are likely reactive. Bedside laryngoscopy 12/12 FINDINGS: Glottic Airway is patent - vocal cords are CLEAR. NO airway compromise - but still has thickening of epiglottis - mostly on the Lingual Surface. Arytenoids are within normal size and NOT compromising the airway. Aryepiglottic Folds are THIN and SMOOTH. MUCOSA is PINK - NOT Erythematous. RESOLVING past exudates.. - CT neck 12/13 1. Slight increase in size in the 6.2 x 4.1 x 2.6 cm multiloculated fluid collection seen within the deep soft tissues of the anterior neck extending from the level of the hyoid to the thyroid gland. This primarily involves the anterior strap muscles. The majority of this collection is superficial to the thyroid cartilage and likely represents an abscess. A small component of the abscess is deep to the hyoid bone and extends into the vallecula. No midline masses considered less likely but not entirely excluded. 2. There is overlying cellulitis of the anterior neck. This is centered at the level of the larynx and causes at least mild narrowing of the laryngeal airway. 3. The epiglottis is markedly thickened and edematous indicating epiglottitis. 4. There is infiltration of the parapharyngeal fat and retropharyngeal fat. 5. Edema within the submandibular glands and the thyroid gland is likely reactive. 6. Numerous mildly enlarged cervical lymph nodes are likely reactive. OR 12/13 p Incision and Drainage of Deep Neck Abscess, Anterior Neck Exploration, Direct Laryngoscopy(Not Applicable) - Nelson Goldsmith MD 12/19: Pt afebrile, WBC trending down. Remaining juliana drain removed 12/18, RN communicated to teach dressing to the patient. Pt w/ no dysphonia, dysphagia or dyspnea. 12/13 culture reviewed. Will continue w/ iv clinda, on PO upon DC. Monitor for 1 more days. (4) Chronic obstructive pulmonary disease: Plan: chronic, not in exacerbation. (5) DVT prophylaxis: Plan: Lovenox Full Code Plan: Continue inpatient management. Await final cx results. likely dc in next 1-2 days. Admission and Anticipated Discharge Date Admission Date: December 08, 2021 Subjective Patient seen and examined at bedside as a follow-up of acute epiglottitis, cellulitis of neck and abscess of neck. Patient was sitting up in chair, on room air, neck dressing in situ, NAD, no new acute events overnight. No dysphagia or dysphonia or dyspnea per patient. Denies headache/dizziness/chest pain/palpitation/other review of symptoms. Wound exam revealed minimal drainage in the dressing, pt reports it was moderate drainage before, now decreasing. Physical Exam Physical Exam: GENERAL: Alert and oriented x3. NAD, on RA. HEENT: No pallor, no icterus. Pupils equal, round and reactive to light. Oral mucosa moist. Neck incision site covered with dressing, some soakage noted. NECK: No JVD, no neck masses. HEART: S1 and S2 heard. Regular rate and rhythm. No murmur, no gallop. RESPIRATORY SYSTEM: Normal AP diameter. No accessory muscle use. No wheezing, no crackles. ABDOMEN: Soft, bowel sounds present, nontender, no distention. CENTRAL NERVOUS SYSTEM: No facial droop. Speech is clear. Obeys simple commands. Moves extremities. EXTREMITIES: No edema, no erythema seen. Results & Data Results & Data ([facility]) Vital Signs (Past 12 Hours) Vital Signs Temp Pulse Pulse Resp BP Pulse Ox 12/19/21 10:44 36.8 C 74 18 109/69 97 12/19/21 08:12 36.7 C 70 18 125/73 95 12/19/21 07:25 72 (1) Acute epiglottitis Airway obstruction: without obstruction Qualified Code(s): J05.10 - Acute epiglottitis without obstruction
[2021-12-20] MEDS: CLINDAMYCIN 600 MG in DEXTROSE 5% 50 ML IV SCH ×2 (01:25→11:23)
[2021-12-20 06:55] LABS: BUN Creatinine Ratio 23.8 (10-20); Calcium 8.9 mg/dl (8.5-10.1); Est GFR (African American) 117.9 ml/min; Est GFR (Non-African American) 101.7 ml/min; Phosphorus 3.6 mg/dl (2.5-4.9); Potassium 4.3 mmol/L (3.5-5.1)
[2021-12-20] MEDS: FAMOTIDINE 40 MG TABLET PO SCH (07:49)
[2021-12-20] MEDS: ADVANCED PROBIOTIC 1250 MG CAPSULE PO SCH (07:49)
[2021-12-20] MEDS: UMECLIDINIUM/VILANTEROL 62.5/25MCG 7 PUFFS/INHALER INH SCH (07:49)
[2021-12-20] MEDS: MULTIVITAMIN TAB PO SCH (07:49)
[2021-12-20] MEDS: ENOXAPARIN INJ 40 MG/0.4 ML SYR SQ SCH (07:49)
--- NOTE | 2021-12-20 13:40 | Discharge Summary ---
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 Last confinement 2015 under Orthopedics service for elective left shoulder surgery. 1 week history of fever, cough, sore throat symptoms. Poor appetite. No known recent COVID-19 contacts. Patient has not received COVID-19 vaccination. Patient seen at PCP's office. Symptoms attributed to viral infection. Outpatient COVID-19 test was negative. Patient consulted ER 3 days ago for worsening symptoms. Patient discharged on doxycycline and steroid course for possible bronchitis. Worsening symptoms and note of neck swelling " starting from the right ear and going across." Pain all over her teeth. Voice change noted. Some swallowing problems. Cough productive of clear sputum without chest pain. Patient consulted ER for worsening symptoms. IV Clindamycin and Decadron given at the ER. Admission Exam Per Admitting Provider GENERAL: Comfortable, anxious, morbidly obese, dysphonic, no stridor, no respiratory distress SKIN: Normal color, warm HEENT: Wheeler palpebral conjunctivae, no ptosis, dry buccal mucosa, no trismus NECK : Short neck, cervical swelling and tenderness CHEST : Expiratory wheezes , no tenderness HEART : RRR, no obvious murmurs ABDOMEN: Some distention, nontender EXTREMITIES : No LE swelling/tenderness, no other conspicuous deformities noted NEUROLOGIC : Coherent, no facial asymmetry, dysphonic, no other gross focality Principal Diagnosis Acute epiglottitis Discharge Exam GENERAL: Alert and oriented x3. NAD, on RA. HEENT: No pallor, no icterus. Pupils equal, round and reactive to light. Oral mucosa moist. Neck incision site covered with dressing, minimal soakage noted. NECK: No JVD, no neck masses. HEART: S1 and S2 heard. Regular rate and rhythm. No murmur, no gallop. RESPIRATORY SYSTEM: Normal AP diameter. No accessory muscle use. No wheezing, no crackles. ABDOMEN: Soft, bowel sounds present, nontender, no distention. CENTRAL NERVOUS SYSTEM: No facial droop. Speech is clear. Obeys simple commands. Moves extremities. EXTREMITIES: No edema, no erythema seen. Discharge Data Allergies Allergy/AdvReac Type Severity Reaction Status Date / Time Penicillins Allergy Intermediate RASH Verified 12/08/21 21:49 Consultations 12/09/21 00:46 Consult Parcel Post Delivery Routine Consult Otolaryngology (Head and Neck) Routine Procedures Performed Operation Date: 12/13/21 19:45 Actual Procedures p Incision and Drainage of Deep Neck Abscess, Anterior Neck Exploration(Not Applicable) - Nelson Goldsmith MD s Direct Laryngoscopy(Not Applicable) - Nelson Goldsmith MD Ordered Studies 12/08/21 19:48 CT soft tissue neck w con Stat 12/13/21 06:00 CT soft tissue neck w con Urgent Hospital Course (1) Acute epiglottitis: (2) Cellulitis of neck: (3) Abscess of neck: Per Dr. De Leon's note w/ addendum: Cellulitis of the neck with presence of abscess as well as narrowing airway from swelling as a result of acute epiglottitis. Pt was recently on a short course of oral prednisone and abx with no improvement. After starting on IV abx and decadron, she improved, now again seems to be slightly worsening. IV decadron course completed per ENT/Pulm. - S/p IV vanc/ceftriaxone ->IV clindamycin since 12/12. S/p decadron. - S/p Incision and Drainage of Deep Neck Abscess, Anterior Neck Exploration, Direct Laryngoscopy by Dr Goldsmith 12/13/21 - Await final clx results for antibiotic tailoring- currently showing strep and probable anerobic GNB. Wound management per ENT CT neck 12/08 1. There is a severe inflammatory process of the pharynx and larynx as above with overlying cellulitis of the anterior neck. This is centered at the level of the larynx and causes at least mild narrowing of the laryngeal airway. This is l ikely on an infectious basis. 2. No peritonsillar abscess is identified. 3. There is a crescentic fluid collection seen within the deep soft tissues of the anterior neck extending from the level of the hyoid to the thyroid gland. This is superficial to the thyroid cartilage and likely represents an abscess. 4. The epiglottis is markedly thickened and edematous indicating epiglottitis. 5. There is infiltration of the parapharyngeal fat and retropharyngeal fat. 6. Edema within the submandibular glands and the thyroid gland is likely reactive. 7. Numerous mildly enlarged cervical lymph nodes are likely reactive. Bedside laryngoscopy 12/12 FINDINGS: Glottic Airway is patent - vocal cords are CLEAR. NO airway compromise - but still has thickening of epiglottis - mostly on the Lingual Surface. Arytenoids are within normal size and NOT compromising the airway. Aryepiglottic Folds are THIN and SMOOTH. MUCOSA is PINK - NOT Erythematous. RESOLVING past exudates.. - CT neck 12/13 1. Slight increase in size in the 6.2 x 4.1 x 2.6 cm multiloculated fluid collection seen within the deep soft tissues of the anterior neck extending from the level of the hyoid to the thyroid gland. This primarily involves the anterior strap muscles. The majority of this collection is superficial to the thyroid cartilage and likely represents an abscess. A small component of the abscess is deep to the hyoid bone and extends into the vallecula. No midline masses considered less likely but not entirely excluded. 2. There is overlying cellulitis of the anterior neck. This is centered at the level of the larynx and causes at least mild narrowing of the laryngeal airway. 3. The epiglottis is markedly thickened and edematous indicating epiglottitis. 4. There is infiltration of the parapharyngeal fat and retropharyngeal fat. 5. Edema within the submandibular glands and the thyroid gland is likely reactive. 6. Numerous mildly enlarged cervical lymph nodes are likely reactive. OR 12/13 p Incision and Drainage of Deep Neck Abscess, Anterior Neck Exploration, Direct Laryngoscopy(Not Applicable) - Nelson Goldsmith MD 12/19: Pt afebrile, WBC trending down. Remaining juliana drain removed 12/18, RN communicated to teach dressing to the patient. Pt w/ no dysphonia, dysphagia or dyspnea. 12/13 culture reviewed. Will continue w/ iv clinda, on PO upon DC. Monitor for 1 more days. 12/20: Wound dressing w/ minimal soakage, wound closing up, looks healthy. Pt doing well, hemodynamically stable. Pt to continue w/ clinda PO and probiotic upon DC, f/u w/ PCP and ENT with in a week time. Patient being discharged to home with following instruction at the point of discharge: Continue the antibiotic clindamycin three times daily to complete the course. If you have increasing pain, shortness of breath, fever, chills, shortness of breath, hoarseness or diarrhea, come to the emergency immediately See the ENT doctors in the office as outpatient within a week time. Follow-up with your primary care physician within a week time. Continue take probiotic as prescribed. Daily wound dressing, follow-up with ENT. Take your medications as prescribed. (4) Chronic obstructive pulmonary disease: chronic, not in exacerbation. (5) DVT prophylaxis: Lovenox Full Code Continue inpatient management. Await final cx results. likely dc in next 1-2 days. Total Time Total Time Spent Total Time Spent (In Minutes): 35 Discharge Plan Discharge Items Patient Disposition: Home - Self-Care Reason For Visit: DEEP SPACE NECK INFXN, POTENTIAL AIRWAR OBS Discharge Diagnosis: Acute epiglottitis Activity: Resume your previous activity Non-emergency contact: Primary Care Provider Call non-emergency contact if: you have any medication questions, your symptoms worsen, your pain is concerning for you and you have a fever Follow-up/Referrals: Jim Martell MD [Primary Care Provider] - Diet: Regular Addtl Attending Provider Instructions: Continue the antibiotic clindamycin three times daily to complete the course. If you have increasing pain, shortness of breath, fever, chills, shortness of breath, hoarseness or diarrhea, come to the emergency immediately See the ENT doctors in the office as outpatient within a week time. Follow-up with your primary care physician within a week time. Continue take probiotic as prescribed. Daily wound dressing, follow-up with ENT. Take your medications as prescribed. Pending Studies at Discharge: No Stand-Alone Forms: [facility], Smoking Cessation Medications and DC Order Prescriptions: New Advanced Probiotic 625 mg (10 billion cell) Capsule 2 cap PO DAILY 10 Days Qty: 20 RF: 0 clindamycin HCl 300 mg capsule 300 mg PO Q8H 4 Days Qty: 12 RF: 0 Continued famotidine 40 mg Tablet 40 mg PO BID RF: 0 Anoro Ellipta 62.5-25 mcg/actuation Blister With Device 1 inh INHALATION DAILY PRN (Reason: Shortness Of Breath) RF: 0 ibuprofen 600 mg Tablet 600 mg PO DIRECTED PRN (Reason: Pain) RF: 0 multivitamin Tablet 1 tab PO DAILY RF: 0 sulindac 150 mg tablet 150 mg PO BID RF: 0 acetaminophen [Tylenol Extra Strength] 500 mg Tablet 1,000 mg PO Q6H PRN (Reason: Pain) RF: 0 albuterol sulfate 90 mcg/actuation HFA aerosol inhaler 2 inh inhalation Q6H PRN (Reason: shortness of breath or wheezing) Qty: 8.5 RF: 0 prednisone 20 mg tablet 60 mg PO DAILY 4 Days Qty: 12 RF: 0 Discontinued doxycycline hyclate 100 mg capsule 100 mg PO BID 7 Days Qty: 14 RF: 0 Discharge Orders: Discharge Order (Routine); Ordered 12/20/21 Ordered By: Jerson Eden Admission Data Admit Date/Time: 12/08/21 22:37 Attending Provider: Jerson Eden Admit Provider: David Galeana Primary Care Provider: Jim Martell Other Providers: Dennis Oden Mara C.
== END 2021-12-20 15:19 | disposition home or self-care (01) | DRG 144 ==
LOC: ED 16:06 → SUATTDRO 22:37 → 1E 22:37 → 2N 12-12 17:46